=== PATIENT | male | born 1955 | race American Indian/Alaskan Native ===

== ENCOUNTER 2021-10-30 13:49 | Emergency (ER) | payer SELFPAY ==
[2021-10-30 14:16] VITALS: BP 114/68
== END 2021-10-31 08:30 | disposition left against medical advice (07) ==
LOC: ED 13:49
DX: R25.1 Tremor, unspecified (principal); Z53.21 Procedure and treatment not carried out due to patient leaving prior to being seen by health care provider
CPT/HCPCS: 82962

== ENCOUNTER 2021-10-31 10:58 | Inpatient (IN) | payer SELFPAY ==
[2021-10-31 12:22] LABS: Basophils % (Auto) 0.2 % (0.0-1.8); Eosinophils % (Auto) 0.1 % (0.0-4.3); Hemoglobin 12.8 gm/dl (11.8-15.2); Lymphocytes # (Auto) 0.8 K/mm3 (1.2-5.4); Mean Corpuscular HGB Conc 33 % (32-34); Mean Corpuscular Volume 93 fl (84-94); Monocytes % (Auto) 7.3 % (0.0-7.3); Platelet Count 491 K/mm3 (140-440); Red Blood Count 4.18 M/mm3 (3.65-5.03); Red Cell Distribution Width 13.7 % (13.2-15.2)
--- NOTE | 2021-10-31 12:25 | XRay Report ---
CHEST 2 VIEWS INDICATION / CLINICAL INFORMATION: Syncope. COMPARISON: None available. FINDINGS: SUPPORT DEVICES: None. HEART / MEDIASTINUM: No significant abnormality. LUNGS / PLEURA: There is moderate infiltrate in the left upper lobe and to a lesser extent right lowe r lung. This is somewhat nodular in nature. There are also focal pleural calcifications laterally in the right lower lung. Small right pleural effusion. ADDITIONAL FINDINGS: No significant additional findings. IMPRESSION: 1. Bilateral lung opacities concerning for pneumonia. Consider further evaluation with CT. 2. Small right pleural effusion. Signer Name: Sarthak De La Garza Jr, MD Signed: 10/31/2021 12:21 PM Workstation Name: [id number]
[2021-10-31 12:31] LABS: INR 1.01 (0.87-1.13)
[2021-10-31 12:42] LABS: Creatine Kinase MB 4.3 ng/mL (0.0-4.0)
[2021-10-31 12:44] LABS: Alanine Aminotransferase 44 units/L (7-56); Albumin 3.5 g/dL (3.9-5); Blood Urea Nitrogen 53 mg/dL (9-20); Calcium 9.8 mg/dL (8.4-10.2); Hemolysis Index 4
[2021-10-31 12:45] LABS: BUN/Creatinine Ratio 14
--- NOTE | 2021-10-31 18:17 | XRay Report ---
CHEST 1 VIEW 10/31/2021 5:56 PM INDICATION / CLINICAL INFORMATION: Shortness of breath. COMPARISON: Earlier the same day. FINDINGS: SUPPORT DEVICES: None. HEART / MEDIASTINUM: No significant abnormality. LUNGS / PLEURA: Masslike opacity remains at the left upper and right lower zones. Pleural calcificati ons are seen at the right base. ADDITIONAL FINDINGS: No significant additional findings. IMPRESSION: 1. Persistent masslike opacity bilaterally. Further evaluation with CT chest recommended. 2. Pleural-based calcifications remains right base. Signer Name: Silvano Short MD Signed: 10/31/2021 6:13 PM Workstation Name: [id number]
--- NOTE | 2021-10-31 19:10 | History and Physical Report ---
History of Present Illness Chief complaint: I get short of breath, get dizzy and then I passed out History of present illness: 66 YO male with Obesity, BPH, DM, Metabolic Syndrome,BPH, HLD, Nicotine Dependence presents to ED for evaluation. Patient reports "I get short of breath, then I got dizzy, then I passed out". Patient states that he has been "not feeling well over the past 2 days. Patient states that while ambulating today he experienced a sudden onset of dizziness, weakness and shortness of breath and subsequently passed out. Patient transported to [facility] via private vehicle for further care and evaluation of the aforementioned symptoms. The patient was seen and evaluated in the emergency department. All lab and imaging studies reviewed. Patient with chest x-ray and was found to have bilateral pn eumonia, as well as acute kidney injury. Patient admitted to medical floor and initiated on pneumonia protocol as well as coronavirus protocol. Patient denies fever, chills, chest pain, palpitation, productive cough, skin rash, recent contact, unilateral leg swelling, calf pain, prolonged immobility, prolonged travel, individual/family history of DVT/PE/bleeding/blood clotting disorders. Prior admission on 12/25/2013 reviewed. All medication listed at time of admission as reconciled. Advanced care planning conducted in ED. Past History Past Medical History: diabetes, hyperlipidemia, other (See HPI) Past Surgical History: Other (Testicle surgery) Social history: single, smoking Family history: hypertension Medications and Allergies Allergies Allergy/AdvReac Type Severity Reaction Status Date / Time No Known Allergies Allergy Verified 04/27/14 05:52 Home Medications Medication Instructions Recorded Confirmed Last Taken Type Finasteride 5 mg PO BID 12/26/13 04/27/14 04/26/14 History Tamsulosin [Flomax] 0.4 mg PO BID 12/26/13 04/27/14 04/26/14 History amLODIPine 10 mg PO QDAY #30 tablet 12/30/13 04/27/14 Unknown Rx Sulfamethoxazole/Trimethoprim 1 each PO BID #14 tablet 04/27/14 Unknown Rx [Bactrim Ds] traMADoL [Ultram 50 MG tab] 50 mg PO Q6HR PRN #14 tablet 04/27/14 Unknown Rx Review of Systems Constitutional: weakness, no weight loss, no weight gain, no fever Ears, nose, mouth and throat: no ear pain, no ear discharge, no decreased hearing, no nasal congestion, no nasal discharge Cardiovascular: shortness of breath, no chest pain, no rapid/irregular heart beat Respiratory: no cough with sputum, no excessive sputum, no shortness of breath Gastrointestinal: no abdominal pain, no vomiting, no change in bowel habits Genitourinary Male: no hematuria, no flank pain, no discharge, no urinary frequency Rectal: no pain, no incontinence, no bleeding Musculoskeletal: no neck stiffness, no shooting arm pain, no low back pain, no shooting leg pain Integumentary: no rash, no pruritis, no redness, no wounds, no jaundice Neurological: syncope, no head injury, no transient paralysis Psychiatric: no anxiety, no change in sleep habits, no sleep disturbances, no insomnia, no hypersomnia, no change in appetite, no hallucinations Endocrine: no heat intolerance, no excessive thirst, no polyuria, no excessive sweating Hematologic/Lymphatic: no easy bruising, no lymphedema Allergic/Immunologic: no urticaria, no allergic rhinitis, no wheezing, no angioedema Exam - Constitutional Vitals: Temp Pulse Resp BP Pulse Ox 99.8 F H 107 H 20 146/79 94 10/31/21 11:04 10/31/21 11:04 10/31/21 11:04 10/31/21 11:04 10/31/21 11:04 General appearance: Present: mild distress - EENT Eyes: Present: PERRL ENT: hearing intact, clear oral mucosa - Neck Neck: Present: supple, normal ROM - Respiratory Respiratory effort: normal Respiratory: bilateral: diminished, rhonchi - Cardiovascular Heart Sounds: Present: S1 & S2. Absent: rub, click - Extremities Extremities: pulses symmetrical, No edema Peripheral Pulses: within normal limits - Abdominal General gastrointestinal: Present: soft, non-tender, non-distended, normal bowel sounds Male genitourinary: Present: normal - Integumentary Integumentary: Present: clear, warm, dry - Musculoskeletal Musculoskeletal: gait normal, strength equal bilaterally - Psychiatric Psychiatric: appropriate mood/affect, intact judgment & insight - Neurologic Neurologic: CNII-XII intact, moves all extremities HEART Score - HEART Score Troponin: Troponin T < 0.010 ng/mL (0.00-0.029) 10/31/21 11:29 Results - Labs CBC & Chem 7: 10/31/21 11:29 10/31/21 11:29 Labs: Abnormal lab results 10/31/21 10/31/21 10/31/21 Range/Units 11:15 11:29 11:29 WBC 13.6 H (4.5-11.0) K/mm3 Plt Count 491 H (140-440) K/mm3 Lymph % (Auto) 6.0 L (13.4-35.0) % Lymph # (Auto) 0.8 L (1.2-5.4) K/mm3 [place] # (Auto) 1.0 H (0.0-0.8) K/mm3 Seg Neutrophils % 86.4 H (40.0-70.0) % Seg Neutrophils # 11.8 H (1.8-7.7) K/mm3 D-Dimer 1287.39 H (0-234) ng/mlDDU Sodium (137-145) mmol/L Chloride (98-107) mmol/L BUN (9-20) mg/dL Creatinine (0.8-1.3) mg/dL Glucose (75-100) mg/dL POC Glucose 149 H (70-105) mg/dL Alkaline Phosphatase (35-129) units/L Total Creatine Kinase (55-170) units/L CK-MB (CK-2) (0.0-4.0) ng/mL Total Protein (6.3-8.2) g/dL Albumin (3.9-5) g/dL 10/31/21 Range/Units 11:29 WBC (4.5-11.0) K/mm3 Plt Count (140-440) K/mm3 Lymph % (Auto) (13.4-35.0) % Lymph # (Auto) (1.2-5.4) K/mm3 [place] # (Auto) (0.0-0.8) K/mm3 Seg Neutrophils % (40.0-70.0) % Seg Neutrophils # (1.8-7.7) K/mm3 D-Dimer (0-234) ng/mlDDU Sodium 128 L (137-145) mmol/L Chloride 89.1 L (98-107) mmol/L BUN 53 H (9-20) mg/dL Creatinine 3.9 H (0.8-1.3) mg/dL Glucose 168 H (75-100) mg/dL POC Glucose (70-105) mg/dL Alkaline Phosphatase 270 H (35-129) units/L Total Creatine Kinase 216 H (55-170) units/L CK-MB (CK-2) 4.3 H (0.0-4.0) ng/mL Total Protein 9.4 H (6.3-8.2) g/dL Albumin 3.5 L (3.9-5) g/dL Assessment and Plan - Patient Problems (1) Pneumonia Status: Acute Plan to address problem: Pneumonia protocol: Chest x-ray, CBC, CMP, IV antibiotic therapy, supplemental oxygen, pulse oximetry, nebulizer therapy, blood culture. (2) Acute kidney injury (CHAZ) with acute tubular necrosis (ATN) Status: Acute Plan to address problem: IV fluid resuscitation therapy, BMP, repeat BMP in a.m., monitor urine output every shift. Urine electrolytes. (3) Suspected 2019 novel coronavirus infection Status: Acute Plan to address problem: Coronavirus protocol: IV antibiotic therapy, IV steroid therapy, vitamin C therapy, vitamin D therapy, zinc therapy, prophylactic anticoagulation. (4) Obesity (BMI 30.0-34.9) Status: Acute Plan to address problem: Balanced diet, increase physical activity discharge. (5) Hypertension Status: Acute Qualifiers: Hypertension type: primary hypertension Qualified Code(s): I10 - Essential (primary) hypertension Plan to address problem: Monitor blood pressure every shift, continue medical management. (6) Metabolic syndrome Status: Acute Plan to address problem: Weight reduction, low-cholesterol diet, increase physical activity discharge, weight reduction. (7) Diabetes Status: Acute Plan to address problem: Consistent carbohydrate diet, Accu-Chek, insulin protocol, hypoglycemia p rotocol. (8) Nicotine dependence Status: Acute Plan to address problem: Smoking cessation counseling, behavior change counseling, +15 minutes, plus supportive care. (9) DVT prophylaxis Status: Acute Plan to address problem: SCD to bilateral lower extremities while in bed, prophylactic anticoagulation. (10) Advance care planning Status: Acute Plan to address problem: Disease education done, care plan discussed, diagnoses discussed, prognosis discussed, patient is full code. Patient knowledges understanding agree with care plan, +30 minutes. (11) Preventative health care Status: Acute Plan to address problem: Patient counseled regarding weight reduction, risk factor reduction, and outpatient follow-up with primary care physician for all age and risk factor appropriate screening test. +30 minutes.
--- NOTE | 2021-10-31 19:16 | Emergency Department Report ---
ED Syncope HPI - General Chief Complaint: Syncope Stated Complaint: SYNCOPE Time Seen by Provider: 10/31/21 17:44 Source: patient, family - History of Present Illness Initial Comments: Patient is a 66-year-old male with history of chronic kidney disease brought in for evaluation after witnessed syncopal event earlier today. States he had just gotten home from [place]. He reports associated dizziness without headache. He denies chest pain however reports mild dyspnea. Denies fever or chills. He is not on dialysis. - Related Data Allergies/Adverse Reactions: Allergies No Known Allergies Allergy (Verified 04/27/14 05:52) Home Medications: Ambulatory Orders Finasteride 5 mg PO BID 12/26/13 Tamsulosin [Flomax] 0.4 mg PO BID 12/26/13 amLODIPine 10 mg PO QDAY #30 tablet 12/30/13 Sulfamethoxazole/Trimethoprim [Bactrim Ds] 1 each PO BID #14 tablet 04/27/14 traMADoL [Ultram 50 MG tab] 50 mg PO Q6HR PRN #14 tablet 04/27/14 ED Review of Systems ROS: Stated complaint: SYNCOPE Other details as noted in HPI Constitutional: denies: chills, fever Respiratory: shortness of breath. denies: cough, wheezing Cardiovascular: denies: chest pain, palpitations Gastrointestinal: denies: abdominal pain, nausea, diarrhea Genitourinary: denies: urgency, dysuria Musculoskeletal: denies: back pain, joint swelling, arthralgia Skin: denies: rash, lesions Neurological: as per HPI Psychiatric: denies: anxiety, depression ED Past Medical Hx - Past Medical History Hx Hypertension: Yes Hx Heart Attack/AMI: No Hx Congestive Heart Failure: No Hx Diabetes: Yes Hx Deep Vein Thrombosis: No Hx Pulmonary Embolism: No Hx GERD: No Hx Liver Disease: No Hx Renal Disease: No Hx Sickle Cell Disease: No Hx Arthritis: No Hx Headaches / Migraines: No Hx Seizures: No Hx Kidney Stones: No Hx Asthma: No Hx COPD: No Hx Tuberculosis: Yes Hx Dementia: No Hx HIV: No Additional medical history: enlarged prostate, high cholesterol - Surgical History Hx Coronary Stent: No Hx Open Heart Surgery: No Hx Pacemaker: No Hx Internal Defibrillator: No Hx Cholecystectomy: No Hx Appendectomy: No Hx Breast Surgery: No Additional Surgical History: Testicle removed - Social History Smoking Status: Current Every Day Smoker - Medications Home Medications: Home Medications Medication Instructions Recorded Confirmed Last Taken Type Finasteride 5 mg PO BID 12/26/13 04/27/14 04/26/14 History Tamsulosin [Flomax] 0.4 mg PO BID 12/26/13 04/27/14 04/26/14 History amLODIPine 10 mg PO QDAY #30 tablet 12/30/13 04/27/14 Unknown Rx Sulfamethoxazole/Trimethoprim 1 each PO BID #14 tablet 04/27/14 Unknown Rx [Bactrim Ds] traMADoL [Ultram 50 MG tab] 50 mg PO Q6HR PRN #14 tablet 04/27/14 Unknown Rx ED Physical Exam - General Limitations: No Limitations General appearance: alert, in no apparent distress - Head Head exam: Present: atraumatic, normocephalic - Neck Neck exam: Present: normal inspection - Respiratory Respiratory exam: Present: normal lung sounds bilaterally. Absent: respiratory distress - Cardiovascular Cardiovascular Exam: Present: normal rhythm, tachycardia, normal heart sounds - GI/Abdominal GI/Abdominal exam: Present: soft. Absent: distended, tenderness - Neurological Exam Neurological exam: Present: alert, oriented X3 - Psychiatric Psychiatric exam: Present: normal affect, normal mood - Skin Skin exam: Present: warm, dry, intact, normal color ED Course Vital Signs 10/31/21 11:04 Temperature 99.8 F H Pulse Rate 107 H Respiratory 20 Rate Blood Pressure 146/79 O2 Sat by Pulse 94 Oximetry ED Medical Decision Making - Lab Data Result diagrams: 10/31/21 11:29 10/31/21 11:29 - EKG Data -: EKG Interpreted by Me (Sinus rhythm with ventricular rate of 105. Right bundle branch block) - Medical Decision Making Labs reviewed. WBC count 13.6. D-dimer roughly 1200. Troponin within normal limits. Creatinine 3.9. Potassium within normal limits. Unable to obtain contrasted scan at this time given patient's renal function. Will admit to hospitalist and obtain VQ scan. Critical care attestation.: If time is entered above; I have spent that time in minutes in the direct care of this critically ill patient, excluding procedure time. ED Disposition Clinical Impression: Syncope and collapse, Chronic kidney disease, Elevated d-dimer Disposition: 09 ADMITTED INPATIENT Is pt being admited?: Yes Condition: Stable Instructions: Syncope (ED)
[2021-10-31] MEDS ORDERED: HYDROmorphone 0.5 MG/0.5 ML INJ IV PRN (19:17)
[2021-10-31] MEDS ORDERED: oxyCODONE /ACETAMINOPHEN 5-325MG TAB PO PRN (19:17)
[2021-10-31] MEDS ORDERED: ALBUTEROL 2.5 MG/3 ML NEBU IH PRN (19:17)
[2021-10-31] MEDS ORDERED: ONDANSETRON 4 MG/2 ML INJ IV PRN (19:17)
[2021-10-31] MEDS ORDERED: ACETAMINOPHEN 325 MG TAB PO PRN (19:17)
[2021-10-31] MEDS ORDERED: traMADol 50 MG TAB PO PRN ×2 (19:20→20:00)
--- NOTE | 2021-10-31 19:54 | Cat Scan Report ---
CT head/brain wo con INDICATION / CLINICAL INFORMATION: 66 years Male; Syncope. TECHNIQUE: Routine CT head without contrast. All CT scans at this location are performed using CT dos e reduction for ALARA by means of automated exposure control. COMPARISON: None. FINDINGS: BRAIN / INTRACRANIAL CONTENTS: The motion degrades the image quality. However, there is extensive cer ebral white matter disease most consistent with microvascular angiopathy. There is a lacunar infarct involving the head of the right caudate which appears chronic at. The ventricular system is appropria te in size and configuration. There is no clear CT evidence of acute intracranial hemorrhage or signi ficant mass effect. ORBITS: No significant abnormality of visualized orbits. SINUSES / MASTOIDS: No significant abnormality in the visualized paranasal sinuses or mastoid air tracey ls. CRANIOCERVICAL JUNCTION: No significant abnormality. ADDITIONAL FINDINGS: None. IMPRESSION: 1. There is extensive microvascular angiopathy as described without clear CT evidence of acute intrac ranial hemorrhage. Signer Name: James Barrett MD Signed: 10/31/2021 7:49 PM Workstation Name: [id number]
[2021-10-31 21:44] LABS: C-Reactive Protein 29.1 mg/dL (0.00-1.30)
[2021-10-31] MEDS ORDERED: FINASTERIDE 1 MG PO SCH (22:00)
[2021-10-31] MEDS: HEPARIN 5,000 UNIT/1 ML VIAL SUB-Q SCH (23:48)
[2021-10-31] MEDS: cefTRIAXone/NS 2 GM/100 ML 2 GM/100 ML BAG IV SCH (23:48)
[2021-10-31] MEDS: methylPREDNISolone Sod Succinate 40 MG/1 ML INJ IV SCH (23:48)
[2021-10-31] MEDS: ASCORBIC ACID 500 MG TAB PO SCH (23:49)
[2021-11-01] MEDS: methylPREDNISolone Sod Succinate 40 MG/1 ML INJ IV SCH ×3 (05:27→21:44)
[2021-11-01] MEDS: SODIUM CHLORIDE 0.9% 1000 ML 1,000 ML IV SCH (06:19)
[2021-11-01] MEDS: TAMSULOSIN 0.4 MG CAP PO SCH ×3 (09:07→21:43)
[2021-11-01] MEDS: ZINC SULFATE 220 MG CAP PO SCH ×3 (09:07→21:43)
[2021-11-01] MEDS: FINASTERIDE 5 MG TAB PO SCH ×3 (09:07→21:44)
[2021-11-01] MEDS: ASCORBIC ACID 500 MG TAB PO SCH ×2 (09:19→21:44)
[2021-11-01] MEDS: HEPARIN 5,000 UNIT/1 ML VIAL SUB-Q SCH ×2 (09:19→21:44)
[2021-11-01] MEDS: CHOLECALCIFEROL (VIT D3) 1000 UNIT (25 mcg) TAB PO SCH (09:19)
[2021-11-01] MEDS: AZITHROMYCIN 250 MG TAB PO SCH (09:19)
[2021-11-01 09:20] LABS: Hematocrit 36.4 % (35.5-45.6); Hemoglobin 12.5 gm/dl (11.8-15.2); Mean Corpuscular HGB Conc 34 % (32-34); Mean Corpuscular Volume 92 fl (84-94); Platelet Count 490 K/mm3 (140-440); Red Blood Count 3.98 M/mm3 (3.65-5.03); Red Cell Distribution Width 13.9 % (13.2-15.2)
[2021-11-01 09:41] LABS: Calcium 10.2 mg/dL (8.4-10.2)
[2021-11-01] MEDS ORDERED: amLODIPine 10 MG TAB PO SCH (10:00)
--- NOTE | 2021-11-01 10:04 | Electrocardiograph Report ---
[facility] Test Date: 2021-10-31 Test Time: 11:23:02 Pat Name: KIRBY GILMORE Department: Room: A353 Gender: M Primary Care Coordinator: SKY : 1955 Requested By: ED DOC Order Number: [id number] Reading MD: Artie Dominique Measurements Intervals [place] Rate: 105 P: 77 SC: 162 QRS: -67 QRSD: 125 T: 56 QT: 361 QTc: 476 Interpretive Statements Sinus tachycardia RBBB and LAFB Borderline ST elevation, lateral leads No previous ECG available for comparison Electronically Signed On 11-01-2021 10:03:56 EDT by Artie Dominique
[2021-11-01] MEDS ORDERED: DEXTROSE 50% IN WATER (25GM) 50 ML SYRINGE IV ONE ×2 (10:20→11:00)
[2021-11-01] MEDS ORDERED: SODIUM POLYSTYRENE 15 GM/60 ML ORAL LIQD PO NR (10:45)
[2021-11-01] MEDS ORDERED: INSULIN REGULAR, HUMAN 100 UNITS/1 ML IV ONE (11:00)
[2021-11-01 13:55] LABS: Basophils % (Manual) 0 % (0.0-1.8); Eosinophils % (Manual) 0 % (0.0-4.3); Monocytes % (Manual) 0 % (0.0-7.3); RBC Morphology Normal; Total Cells Counted 100
[2021-11-01 13:56] LABS: Platelet Estimate Consistent w Auto
--- NOTE | 2021-11-01 18:02 | Progress Note ---
Assessment and Plan Assessment and plan: #Community-acquired pneumonia #Acute hypoxic respiratory failure Pneumonia protocol: Chest x-ray, CBC, CMP, IV antibiotic therapy, supplemental oxygen, pulse oximetry, nebulizer therapy, blood culture. Unremarkable coronavirus PCR. Discontinuing coronavirus infection protocol. - etiology: Infectious/community-acquired pneumonia - baseline oxygen requirements: Room air - supplemental oxygen: 1 L nasal cannula - Continue protocol: continue pulse oximetry, wean oxygen as tolerated, ordered incentive spirometry and educated patient on how to use it and its importance. - continue to monitor #Acute kidney injury (CHAZ) with acute tubular necrosis (ATN) IV fluid resuscitation therapy, BMP, repeat BMP in a.m., monitor urine output every shift. Urine electrolytes. #Suspected 2019 novel coronavirus infectionruled out Coronavirus protocol: IV antibiotic therapy, IV steroid therapy, vitamin C therapy, vitamin D therapy, zinc therapy, prophylactic anticoagulation. #Obesity #Weight loss counseling #Exercise counseling - BMI 31.9 - Counseled patient on the importance of weight loss, incorporating exercise, and dietary changes (lean meats, fresh fruits and vegetables, and water intake). Patient expresses understanding. - Time: +15 min #Hypertension Monitor blood pressure every shift, continue medical management. #Metabolic syndrome Weight reduction, low-cholesterol diet, increase physical activity discharge, weight reduction. #Diabetes Consistent carbohydrate diet, Accu-Chek, insulin protocol, hypoglycemia protocol. #Mild protein caloric malnutrition Albumin 3.5 Starts dietary supplementation #Tobacco dependence #Tobacco/Smoking cessation counseling - Counseled patient about the importance of smoking cessation and the possible sequelae as a result of continued tobacco consumption. The patient expresses understanding. -Time: +15 mins #Advanced care planning -Disease education conducted, care plan discussed, diagnoses discussed, prognosis discussed, and patient acknowledges understanding with care plan -Time: +30 min Disposition Plan: Continue medical management Total Time Spent with Patient (Minutes): 45 minutes History Interval history: No acute events overnight. Hospitalist Physical - Constitutional Vitals: Temp Pulse Resp BP Pulse Ox 97.6 F 90 18 142/90 92 11/01/21 11:34 11/01/21 11:34 11/01/21 11:34 11/01/21 11:34 11/01/21 11:34 General appearance: Present: no acute distress, well-nourished, obese - EENT Eyes: Present: PERRL, EOM intact ENT: hearing intact, clear oral mucosa, dentition normal - Neck Neck: Present: supple, normal ROM - Respiratory Respiratory effort: normal Respiratory: bilateral: diminished (On 1 L nasal cannula) - Cardiovascular Rhythm: regular Heart Sounds: Present: S1 & S2 - Extremities Extremities: no ischemia, pulses intact, pulses symmetrical, No edema, normal temperature, normal color Peripheral Pulses: within normal limits - Abdominal General gastrointestinal: soft, non-tender, non-distended, normal bowel sounds - Integumentary Integumentary: Present: clear, warm, dry - Psychiatric Psychiatric: appropriate mood/affect, intact judgment & insight, memory intact, cooperative - Neurologic Neurologic: CNII-XII intact, moves all extremities - Allied Health Allied health notes reviewed: nursing HEART Score - HEART Score Troponin: Troponin T < 0.010 ng/mL (0.00-0.029) 10/31/21 11:29 Results - Labs CBC & Chem 7: 11/01/21 08:37 11/01/21 08:37 Labs: Laboratory Last Values WBC 14.1 K/mm3 (4.5-11.0) H 11/01/21 08:37 RBC 3.98 M/mm3 (3.65-5.03) 11/01/21 08:37 Hgb 12.5 gm/dl (11.8-15.2) 11/01/21 08:37 Hct 36.4 % (35.5-45.6) 11/01/21 08:37 MCV 92 fl (84-94) 11/01/21 08:37 MCH 32 pg (28-32) 11/01/21 08:37 MCHC 34 % (32-34) 11/01/21 08:37 RDW 13.9 % (13.2-15.2) 11/01/21 08:37 Plt Count 490 K/mm3 (140-440) H 11/01/21 08:37 Lymph % (Auto) 6.0 % (13.4-35.0) L 10/31/21 11:29 Randolph % (Auto) 7.3 % (0.0-7.3) 10/31/21 11:29 Eos % (Auto) 0.1 % (0.0-4.3) 10/31/21 11:29 Baso % (Auto) 0.2 % (0.0-1.8) 10/31/21 11:29 Lymph # (Auto) 0.8 K/mm3 (1.2-5.4) L 10/31/21 11:29 Randolph # (Auto) 1.0 K/mm3 (0.0-0.8) H 10/31/21 11:29 Eos # (Auto) 0.0 K/mm3 (0.0-0.4) 10/31/21 11:29 Baso # (Auto) 0.0 K/mm3 (0.0-0.1) 10/31/21 11:29 Add Manual Diff Complete 11/01/21 08:37 Total Counted 100 11/01/21 08:37 Seg Neutrophils % Liquefaction Plant Operator 11/01/21 08:37 Seg Neuts % (Manual) 99.0 % (40.0-70.0) H 11/01/21 08:37 Band Neutrophils % 0 % 11/01/21 08:37 Lymphocytes % (Manual) 1.0 % (13.4-35.0) L 11/01/21 08:37 Reactive Lymphs % (Man) 0 % 11/01/21 08:37 Monocytes % (Manual) 0 % (0.0-7.3) 11/01/21 08:37 Eosinophils % (Manual) 0 % (0.0-4.3) 11/01/21 08:37 Basophils % (Manual) 0 % (0.0-1.8) 11/01/21 08:37 Metamyelocytes % 0 % 11/01/21 08:37 Myelocytes % 0 % 11/01/21 08:37 Promyelocytes % 0 % 11/01/21 08:37 Blast Cells % 0 % 11/01/21 08:37 Nucleated RBC % Not Reportable 11/01/21 08:37 Seg Neutrophils # 11.8 K/mm3 (1.8-7.7) H 10/31/21 11:29 Seg Neutrophils # Man 14.0 K/mm3 (1.8-7.7) H 11/01/21 08:37 Band Neutrophils # 0.0 K/mm3 11/01/21 08:37 Lymphocytes # (Manual) 0.1 K/mm3 (1.2-5.4) L 11/01/21 08:37 Abs React Lymphs (Man) 0.0 K/mm3 11/01/21 08:37 Monocytes # (Manual) 0.0 K/mm3 (0.0-0.8) 11/01/21 08:37 Eosinophils # (Manual) 0.0 K/mm3 (0.0-0.4) 11/01/21 08:37 Basophils # (Manual) 0.0 K/mm3 (0.0-0.1) 11/01/21 08:37 Metamyelocytes # 0.0 K/mm3 11/01/21 08:37 Myelocytes # 0.0 K/mm3 11/01/21 08:37 Promyelocytes # 0.0 K/mm3 11/01/21 08:37 Blast Cells # 0.0 K/mm3 11/01/21 08:37 WBC Morphology Not Reportable 11/01/21 08:37 Hypersegmented Neuts Not Reportable 11/01/21 08:37 Hyposegmented Neuts Not Reportable 11/01/21 08:37 Hypogranular Neuts Not Reportable 11/01/21 08:37 Smudge Cells Not Reportable 11/01/21 08:37 Toxic Granulation Not Reportable 11/01/21 08:37 Toxic Vacuolation Not Reportable 11/01/21 08:37 Dohle Bodies Not Reportable 11/01/21 08:37 Pelger-Huet Anomaly Not Reportable 11/01/21 08:37 Khushbu Rods Not Reportable 11/01/21 08:37 Platelet Estimate Consistent w auto 11/01/21 08:37 Clumped Platelets Not Reportable 11/01/21 08:37 Plt Clumps, EDTA Not Reportable 11/01/21 08:37 Large Platelets Not Reportable 11/01/21 08:37 Giant Platelets Not Reportable 11/01/21 08:37 Platelet Satelliting Not Reportable 11/01/21 08:37 Plt Morphology Comment Not Reportable 11/01/21 08:37 RBC Morphology Normal 11/01/21 08:37 Dimorphic RBCs Not Reportable 11/01/21 08:37 Polychromasia Not Reportable 11/01/21 08:37 Hypochromasia Not Reportable 11/01/21 08:37 Poikilocytosis Not Reportable 11/01/21 08:37 Anisocytosis Not Reportable 11/01/21 08:37 Microcytosis Not Reportable 11/01/21 08:37 Macrocytosis Not Reportable 11/01/21 08:37 Spherocytes Not Reportable 11/01/21 08:37 Pappenheimer Bodies Not Reportable 11/01/21 08:37 Sickle Cells Not Reportable 11/01/21 08:37 Target Cells Not Reportable 11/01/21 08:37 Tear Drop Cells Not Reportable 11/01/21 08:37 Ovalocytes Not Reportable 11/01/21 08:37 Helmet Cells Not Reportable 11/01/21 08:37 West-Echo Bodies Not Reportable 11/01/21 08:37 Spencer Rings Not Reportable 11/01/21 08:37 Hugo Cells Not Reportable 11/01/21 08:37 Bite Cells Not Reportable 11/01/21 08:37 Crenated Cell Not Reportable 11/01/21 08:37 Elliptocytes Not Reportable 11/01/21 08:37 Acanthocytes (Spur) Not Reportable 11/01/21 08:37 Rouleaux Not Reportable 11/01/21 08:37 Hemoglobin C Crystals Not Reportable 11/01/21 08:37 Schistocytes Not Reportable 11/01/21 08:37 Malaria parasites Not Reportable 11/01/21 08:37 Law Bodies Not Reportable 11/01/21 08:37 Hem Pathologist Commnt No 11/01/21 08:37 PT 14.4 Sec. (12.2-14.9) 10/31/21 11:29 INR 1.01 (0.87-1.13) 10/31/21 11:29 D-Dimer 1264.90 ng/mlDDU (0-234) H 10/31/21 20:05 Sodium 127 mmol/L (137-145) L 11/01/21 08:37 Potassium 5.5 mmol/L (3.6-5.0) H 11/01/21 08:37 Chloride 87.3 mmol/L (98-107) L 11/01/21 08:37 Carbon Dioxide 26 mmol/L (22-30) 11/01/21 08:37 Anion Gap 19 mmol/L 11/01/21 08:37 BUN 60 mg/dL (9-20) H 11/01/21 08:37 Creatinine 3.9 mg/dL (0.8-1.3) H 11/01/21 08:37 Estimated GFR 19 ml/min 11/01/21 08:37 BUN/Creatinine Ratio 15 % 11/01/21 08:37 Glucose 163 mg/dL (75-100) H 11/01/21 08:37 POC Glucose 149 mg/dL (70-105) H 10/31/21 11:15 Calcium 10.2 mg/dL (8.4-10.2) 11/01/21 08:37 Total Bilirubin 0.50 mg/dL (0.1-1.2) 10/31/21 11:29 AST 35 units/L (5-40) 10/31/21 11:29 ALT 44 units/L (7-56) 10/31/21 11:29 Alkaline Phosphatase 270 units/L (35-129) H 10/31/21 11:29 Lactate Dehydrogenase 165 units/L (91-180) 10/31/21 20:05 Total Creatine Kinase 216 units/L (55-170) H 10/31/21 11:29 CK-MB (CK-2) 4.3 ng/mL (0.0-4.0) H 10/31/21 11:29 CK-MB (CK-2) Rel Index 1.9 (0-4) 10/31/21 11:29 Troponin T < 0.010 ng/mL (0.00-0.029) 10/31/21 11:29 C-Reactive Protein 29.10 mg/dL (0.00-1.30) H 10/31/21 20:05 Total Protein 9.4 g/dL (6.3-8.2) H 10/31/21 11:29 Albumin 3.5 g/dL (3.9-5) L 10/31/21 11:29 Albumin/Globulin Ratio 0.6 % 10/31/21 11:29 Procalcitonin 1.88 ng/mL (<0.15) 10/31/21 20:05 Coronavirus (PCR) Negative (Negative) 11/01/21 09:30 Leblanc/IV: Voiding Method Toilet Active Medications - Current Medications Current Medications: Generic Name Dose Route Start Last Admin Trade Name Freq PRN Reason Stop Dose Admin Acetaminophen 650 mg 10/31/21 19:17 Acetaminophen 325 Mg Tab PO Q4H PRN Pain MILD(1-3)/Fever >100.5/GRISSOM Albuterol 2.5 mg 10/31/21 19:17 Albuterol 2.5 Mg/3 Ml Nebu IH Q4HRT PRN Shortness Of Breath Amlodipine Besylate 10 mg 11/01/21 10:00 11/01/21 09:18 Amlodipine 10 Mg Tab PO 10 mg QDAY JUAN Administration Ascorbic Acid 500 mg 10/31/21 22:00 11/01/21 09:19 Ascorbic Acid 500 Mg Tab PO 500 mg BID JUAN Administration Azithromycin 500 mg 11/01/21 10:00 11/01/21 09:19 Azithromycin 250 Mg Tab PO 11/05/21 10:01 500 mg QDAY JUAN Administration Protocol Cholecalciferol 1,000 unit 11/01/21 10:00 11/01/21 09:19 Cholecalciferol (Vit D3) 1000 Unit (25 Mcg) Tab PO 1,000 unit QDAY JAUN Administration Finasteride 5 mg 10/31/21 22:00 11/01/21 09:19 Finasteride 5 Mg Tab PO 5 mg BID JUAN Administration Heparin Sodium (Porcine) 5,000 unit 10/31/21 22:00 11/01/21 09:19 Heparin 5,000 Unit/1 Ml Vial SUB-Q 5,000 unit Q12HR JUAN Administration Hydromorphone HCl 0.5 mg 10/31/21 19:17 Hydromorphone 0.5 Mg/0.5 Ml Inj IV Q8H PRN Pain , Severe (7-10) Sodium Chloride 1,000 mls @ 42 mls/hr 10/31/21 19:30 11/01/21 06:19 Nacl 0.9% 1000 Ml IV 42 mls/hr DIRECT JUAN Administration Ceftriaxone Sodium 2 gm in 100 mls @ 200 mls/hr 10/31/21 20:00 10/31/21 23:48 Rocephin/Ns 2 Gm/100 Ml IV 200 mls/hr Q24H JUAN Administration Protocol Methylprednisolone Sodium Succinate 40 mg 10/31/21 22:00 11/01/21 14:15 Methylprednisolone Sod Succinate 40 Mg/1 Ml Inj IV 40 mg Q8HR JUAN Administration Ondansetron HCl 4 mg 10/31/21 19:17 Ondansetron 4 Mg/2 Ml Inj IV Q8H PRN Nausea And Vomiting Oxycodone/Acetaminophen 1 tab 10/31/21 19:17 Oxycodone /Acetaminophen 5-325mg Tab PO Q6H PRN Pain, Moderate (4-6) Sodium Chloride 10 ml 10/31/21 22:00 11/01/21 09:19 Sodium Chloride 0.9% 10 Ml Flush Syringe IV 10 ml BID JUAN Administration Sodium Chloride 10 ml 10/31/21 19:17 Sodium Chloride 0.9% 10 Ml Flush Syringe IV PRN PRN LINE FLUSH Tamsulosin HCl 0.4 mg 10/31/21 22:00 11/01/21 09:19 Tamsulosin 0.4 Mg Cap PO 0.4 mg BID JUAN Administration Tramadol HCl 50 mg 10/31/21 20:00 Tramadol 50 Mg Tab PO Q6H PRN Pain, Moderate (4-6) Zinc Sulfate 220 mg 10/31/21 22:00 11/01/21 09:19 Zinc Sulfate 220 Mg Cap PO 220 mg BID JUAN Administration Nutrition/Malnutrition Assess - Dietary Evaluation Nutrition/Malnutrition Findings: Nutrition Notes Start: 11/01/21 17:19 Freq: Status: Active Protocol: Document 11/01/21 17:19 NINFA (Rec: 11/01/21 17:38 NINFA [id number]) Nutrition Notes Need for Assessment generated from: MD Order Initial or Follow up Assessment Current Diagnosis Acute Kidney Injury,Diabetes, Hypertension,Hyperlipidemia Other Pertinent Diagnosis Pneumonia, COVID-19 pui, Hyponatremia, Hyperkalemia, BPH. Current Diet Cardiac Diet (since D 10/31). Labs/Tests 11/01: Na 127, K 5.5, Cl 87.3, BUN 60, Crea 3.9, Glu 163. Pertinent Medications 11/01: Vit C, Vit D3, ZnSO4, others nutritionally unremarkable. 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 Weight Status Obese Subjective/Other Information RD consult for Dietary Supplementation Assessment. Pt's PO intake of meals has been Good (100%), according to ADL notes. I will not prescribe dietary supplementation since it appears not to be necessary to compensate for poor PO intake of meals at this time. Pt is on Room Air, O2 saturation @ 97%, according to Physical Assessment Histrory notes. Pt has missing teeth, according to Physical Assessment Histrory notes. Percent of energy/protein needs met: Prescribed Cardiac Diet provides for energy/protein needs (2,230 Kcal/85 g) during LOS. Burn Absent Trauma Absent GI Symptoms None Food Allergy No Skin Integrity/Comment Assessment WNL. Current % PO Good (75-100%) Minimum of two criteria No Fluid Accumulation N/A Reduced Grip Wrapper Strength N/A (non-severe) Protein-Calorie Malnutrition N\A #1 Nutrition Diagnosis No nutrition diagnosis at this time Is patient on ventilator? No Is Patient Ambulatory and/or Out of Bed Yes REE-([place]-. [facility]-ambulatory/OOB) [ [id number] [id number]] Kcal/Kg value to use for calculation 20 Approximate Energy Requirements Using 1958 kcal/Kg Calculation Used for Recommendations Kcal/kg Additional Notes Protein: 0.8-1.2 g/Kg AdjBW; 69-103 g/day. Fluids: 1 ml/Kcal, or as per MD. Nutrition Intervention Change Diet Order: Continue Cardiac Diet. Follow-Up By: 11/08/21 Additional Comments Continue monitoring food tolerance, %PO intake of meals , and BM.
[2021-11-01] MEDS: cefTRIAXone/NS 2 GM/100 ML 2 GM/100 ML BAG IV SCH (20:28)
[2021-11-02] MEDS: SODIUM CHLORIDE 0.9% 1000 ML 1,000 ML IV SCH (05:41)
[2021-11-02] MEDS: methylPREDNISolone Sod Succinate 40 MG/1 ML INJ IV SCH (05:41)
[2021-11-02 05:53] LABS: Hematocrit 35.4 % (35.5-45.6); Hemoglobin 11.7 gm/dl (11.8-15.2); Mean Corpuscular HGB Conc 33 % (32-34); Mean Corpuscular Volume 93 fl (84-94); Platelet Count 482 K/mm3 (140-440); Red Blood Count 3.82 M/mm3 (3.65-5.03); Red Cell Distribution Width 13.9 % (13.2-15.2)
[2021-11-02 06:13] LABS: Calcium 9.6 mg/dL (8.4-10.2)
[2021-11-02] MEDS ORDERED: NIFEdipine XL 90 MG TAB PO SCH ×2 (07:48→08:00)
[2021-11-02] MEDS: NIFEdipine XL 60 MG TAB PO SCH (08:47)
[2021-11-02] MEDS: carvediloL 12.5 MG TAB PO SCH ×2 (08:47→21:44)
[2021-11-02] MEDS: TAMSULOSIN 0.4 MG CAP PO SCH ×2 (09:09→21:44)
[2021-11-02] MEDS: FINASTERIDE 5 MG TAB PO SCH ×2 (09:09→21:45)
[2021-11-02] MEDS: ZINC SULFATE 220 MG CAP PO SCH ×2 (09:10→21:45)
[2021-11-02] MEDS: HEPARIN 5,000 UNIT/1 ML VIAL SUB-Q SCH ×2 (09:10→21:45)
[2021-11-02] MEDS: AZITHROMYCIN 250 MG TAB PO SCH (09:10)
[2021-11-02] MEDS: CHOLECALCIFEROL (VIT D3) 1000 UNIT (25 mcg) TAB PO SCH (09:10)
--- NOTE | 2021-11-02 09:15 | Progress Note ---
Assessment and Plan - Patient Problems (1) Chronic kidney disease Current Visit: Yes Status: Acute Plan to address problem: (1)Monitor kidney function Continue V fluid resuscitation therapy Avoid nephrotoxic drugs renal dose all drugs (2) Elevated d-dimer Current Visit: Yes Status: Acute (3) Syncope and collapse Current Visit: Yes Status: Acute (4) Acute kidney injury (CHAZ) with acute tubular necrosis (ATN) Current Visit: No Status: Acute (5) Bilateral hydronephrosis Current Visit: No Status: Acute (6) DVT prophylaxis Current Visit: No Status: Acute (7) Diabetes Current Visit: No Status: Acute (8) Hypertension Current Visit: No Status: Acute Qualifiers: Hypertension type: primary hypertension Qualified Code(s): I10 - Essential (primary) hypertension (9) Metabolic syndrome Current Visit: No Status: Acute (10) Nicotine dependence Current Visit: No Status: Acute Hospitalist Physical - Constitutional Vitals: Temp Pulse Resp BP Pulse Ox 97.4 F L 98 H 20 191/104 91 11/02/21 04:21 11/02/21 04:21 11/02/21 04:21 11/02/21 04:21 11/02/21 04:21 General appearance: Present: no acute distress, well-nourished, obese HEART Score - HEART Score Troponin: Troponin T < 0.010 ng/mL (0.00-0.029) 10/31/21 11:29 Results - Labs CBC & Chem 7: 11/02/21 05:31 11/02/21 05:31 Labs: Laboratory Last Values WBC 15.6 K/mm3 (4.5-11.0) H 11/02/21 05:31 RBC 3.82 M/mm3 (3.65-5.03) 11/02/21 05:31 Hgb 11.7 gm/dl (11.8-15.2) L 11/02/21 05:31 Hct 35.4 % (35.5-45.6) L 11/02/21 05:31 MCV 93 fl (84-94) 11/02/21 05:31 MCH 31 pg (28-32) 11/02/21 05:31 MCHC 33 % (32-34) 11/02/21 05:31 RDW 13.9 % (13.2-15.2) 11/02/21 05:31 Plt Count 482 K/mm3 (140-440) H 11/02/21 05:31 Lymph % (Auto) 6.0 % (13.4-35.0) L 10/31/21 11:29 [place] % (Auto) 7.3 % (0.0-7.3) 10/31/21 11:29 Eos % (Auto) 0.1 % (0.0-4.3) 10/31/21 11: Baso % (Auto) 0.2 % (0.0-1.8) 10/31/21 11:29 Lymph # (Auto) 0.8 K/mm3 (1.2-5.4) L 10/31/21 11:29 [place] # (Auto) 1.0 K/mm3 (0.0-0.8) H 10/31/21 11:29 Eos # (Auto) 0.0 K/mm3 (0.0-0.4) 10/31/21 11: Baso # (Auto) 0.0 K/mm3 (0.0-0.1) 10/31/21 11:29 Add Manual Diff Complete 11/01/21 08:37 Total Counted 100 11/01/21 08:37 Seg Neutrophils % [place] 11/02/21 05:31 Seg Neuts % (Manual) 99.0 % (40.0-70.0) H 11/01/21 08:37 Band Neutrophils % 0 % 11/01/21 08:37 Lymphocytes % (Manual) 1.0 % (13.4-35.0) L 11/01/21 08:37 Reactive Lymphs % (Man) 0 % 11/01/21 08:37 Monocytes % (Manual) 0 % (0.0-7.3) 11/01/21 08:37 Eosinophils % (Manual) 0 % (0.0-4.3) 11/01/21 08:37 Basophils % (Manual) 0 % (0.0-1.8) 11/01/21 08:37 Metamyelocytes % 0 % 11/01/21 08:37 Myelocytes % 0 % 11/01/21 08:37 Promyelocytes % 0 % 11/01/21 08:37 Blast Cells % 0 % 11/01/21 08:37 Nucleated RBC % Not Reportable 11/01/21 08:37 Seg Neutrophils # 11.8 K/mm3 (1.8-7.7) H 10/31/21 11:29 Seg Neutrophils # Man 14.0 K/mm3 (1.8-7.7) H 11/01/21 08:37 Band Neutrophils # 0.0 K/mm3 11/01/21 08:37 Lymphocytes # (Manual) 0.1 K/mm3 (1.2-5.4) L 11/01/21 08:37 Abs React Lymphs (Man) 0.0 K/mm3 11/01/21 08:37 Monocytes # (Manual) 0.0 K/mm3 (0.0-0.8) 11/01/21 08:37 Eosinophils # (Manual) 0.0 K/mm3 (0.0-0.4) 11/01/21 08:37 Basophils # (Manual) 0.0 K/mm3 (0.0-0.1) 11/01/21 08:37 Metamyelocytes # 0.0 K/mm3 11/01/21 08:37 Myelocytes # 0.0 K/mm3 11/01/21 08:37 Promyelocytes # 0.0 K/mm3 11/01/21 08:37 Blast Cells # 0.0 K/mm3 11/01/21 08:37 WBC Morphology Not Reportable 11/01/21 08:37 Hypersegmented Neuts Not Reportable 11/01/21 08:37 Hyposegmented Neuts Not Reportable 11/01/21 08:37 Hypogranular Neuts Not Reportable 11/01/21 08:37 Smudge Cells Not Reportable 11/01/21 08:37 Toxic Granulation Not Reportable 11/01/21 08:37 Toxic Vacuolation Not Reportable 11/01/21 08:37 Dohle Bodies Not Reportable 11/01/21 08:37 Pelger-Huet Anomaly Not Reportable 11/01/21 08:37 [place] Rods Not Reportable 11/01/21 08:37 Platelet Estimate Consistent w auto 11/01/21 08:37 Clumped Platelets Not Reportable 11/01/21 08:37 Plt Clumps, EDTA Not Reportable 11/01/21 08:37 Large Platelets Not Reportable 11/01/21 08:37 Giant Platelets Not Reportable 11/01/21 08:37 Platelet Satelliting Not Reportable 11/01/21 08:37 Plt Morphology Comment Not Reportable 11/01/21 08:37 RBC Morphology Normal 11/01/21 08:37 Dimorphic RBCs Not Reportable 11/01/21 08:37 Polychromasia Not Reportable 11/01/21 08:37 Hypochromasia Not Reportable 11/01/21 08:37 Poikilocytosis Not Reportable 11/01/21 08:37 Anisocytosis Not Reportable 11/01/21 08:37 Microcytosis Not Reportable 11/01/21 08:37 Macrocytosis Not Reportable 11/01/21 08:37 Spherocytes Not Reportable 11/01/21 08:37 Pappenheimer Bodies Not Reportable 11/01/21 08:37 Sickle Cells Not Reportable 11/01/21 08:37 Target Cells Not Reportable 11/01/21 08:37 Tear Drop Cells Not Reportable 11/01/21 08:37 Ovalocytes Not Reportable 11/01/21 08:37 Helmet Cells Not Reportable 11/01/21 08:37 [place] Bodies Not Reportable 11/01/21 08:37 [place] Rings Not Reportable 11/01/21 08:37 [place] Cells Not Reportable 11/01/21 08:37 Bite Cells Not Reportable 11/01/21 08:37 Crenated Cell Not Reportable 11/01/21 08:37 Elliptocytes Not Reportable 11/01/21 08:37 Acanthocytes (Spur) Not Reportable 11/01/21 08:37 Rouleaux Not Reportable 11/01/21 08:37 Hemoglobin C Crystals Not Reportable 11/01/21 08:37 Schistocytes Not Reportable 11/01/21 08:37 Malaria parasites Not Reportable 11/01/21 08:37 Law Bodies Not Reportable 11/01/21 08:37 Hem Pathologist Commnt No 11/01/21 08:37 PT 14.4 Sec. (12.2-14.9) 10/31/21 11:29 INR 1.01 (0.87-1.13) 10/31/21 11:29 D-Dimer 1264.90 ng/mlDDU (0-234) H 10/31/21 20:05 Sodium 127 mmol/L (137-145) L 11/02/21 05:31 Potassium 5.1 mmol/L (3.6-5.0) H 11/02/21 05:31 Chloride 89.5 mmol/L (98-107) L 11/02/21 05:31 Carbon Dioxide 23 mmol/L (22-30) 11/02/21 05:31 Anion Gap 20 mmol/L 11/02/21 05:31 BUN 65 mg/dL (9-20) H 11/02/21 05:31 Creatinine 3.4 mg/dL (0.8-1.3) H 11/02/21 05:31 Estimated GFR 22 ml/min 11/02/21 05:31 BUN/Creatinine Ratio 19 % 11/02/21 05:31 Glucose 408 mg/dL (75-100) H 11/02/21 05:31 POC Glucose 149 mg/dL (70-105) H 10/31/21 11:15 Calcium 9.6 mg/dL (8.4-10.2) 11/02/21 05:31 Total Bilirubin 0.50 mg/dL (0.1-1.2) 10/31/21 11:29 AST 35 units/L (5-40) 10/31/21 11:29 ALT 44 units/L (7-56) 10/31/21 11:29 Alkaline Phosphatase 270 units/L (35-129) H 10/31/21 11:29 Lactate Dehydrogenase 165 units/L (91-180) 10/31/21 20:05 Total Creatine Kinase 216 units/L (55-170) H 10/31/21 11:29 CK-MB (CK-2) 4.3 ng/mL (0.0-4.0) H 10/31/21 11:29 CK-MB (CK-2) Rel Index 1.9 (0-4) 10/31/21 11:29 Troponin T < 0.010 ng/mL (0.00-0.029) 10/31/21 11:29 C-Reactive Protein 29.10 mg/dL (0.00-1.30) H 10/31/21 20:05 Total Protein 9.4 g/dL (6.3-8.2) H 10/31/21 11:29 Albumin 3.5 g/dL (3.9-5) L 10/31/21 11:29 Albumin/Globulin Ratio 0.6 % 10/31/21 11:29 Procalcitonin 1.88 ng/mL (<0.15) 10/31/21 20:05 Coronavirus (PCR) Negative (Negative) 11/01/21 09:30 [place]/IV: Voiding Method Toilet Active Medications - Current Medications Current Medications: Generic Name Dose Route Start Last Admin Trade Name Freq PRN Reason Stop Dose Admin Acetaminophen 650 mg 10/31/21 19:17 Acetaminophen 325 Mg Tab PO Q4H PRN Pain MILD(1-3)/Fever >100.5/GRISSOM Albuterol 2.5 mg 10/31/21 19:17 Albuterol 2.5 Mg/3 Ml Nebu IH Q4HRT PRN Shortness Of Breath Azithromycin 500 mg 11/01/21 10:00 11/01/21 09:19 Azithromycin 250 Mg Tab PO 11/05/21 10:01 500 mg QDAY JUAN Administration Protocol Carvedilol 12.5 mg 11/02/21 08:00 11/02/21 08:47 Carvedilol 12.5 Mg Tab PO 12.5 mg BID JUAN Administration Cholecalciferol 1,000 unit 11/01/21 10:00 11/01/21 09:19 Cholecalciferol (Vit D3) 1000 Unit (25 Mcg) Tab PO 1,000 unit QDAY JUAN Administration Finasteride 5 mg 10/31/21 22:00 11/01/21 21:44 Finasteride 5 Mg Tab PO 5 mg BID JUAN Administration Heparin Sodium (Porcine) 5,000 unit 10/31/21 22:00 11/01/21 21:44 Heparin 5,000 Unit/1 Ml Vial SUB-Q 5,000 unit Q12HR JUAN Administration Hydromorphone HCl 0.5 mg 10/31/21 19:17 Hydromorphone 0.5 Mg/0.5 Ml Inj IV Q8H PRN Pain , Severe (7-10) Sodium Chloride 1,000 mls @ 42 mls/hr 10/31/21 19:30 11/02/21 05:41 Nacl 0.9% 1000 Ml IV 42 mls/hr DIRECT JUAN Administration Ceftriaxone Sodium 2 gm in 100 mls @ 200 mls/hr 10/31/21 20:00 11/01/21 20:28 Rocephin/Ns 2 Gm/100 Ml IV 200 mls/hr Q24H JUAN Administration Protocol Nifedipine 60 mg 11/02/21 08:00 11/02/21 08:47 Nifedipine Xl 60 Mg Tab PO 60 mg QDAY JUAN Administration Ondansetron HCl 4 mg 10/31/21 19:17 Ondansetron 4 Mg/2 Ml Inj IV Q8H PRN Nausea And Vomiting Oxycodone/Acetaminophen 1 tab 10/31/21 19:17 Oxycodone /Acetaminophen 5-325mg Tab PO Q6H PRN Pain, Moderate (4-6) Sodium Chloride 10 ml 10/31/21 22:00 11/01/21 21:45 Sodium Chloride 0.9% 10 Ml Flush Syringe IV 10 ml BID JUAN Administration Sodium Chloride 10 ml 10/31/21 19:17 Sodium Chloride 0.9% 10 Ml Flush Syringe IV PRN PRN LINE FLUSH Tamsulosin HCl 0.4 mg 10/31/21 22:00 11/01/21 21:43 Tamsulosin 0.4 Mg Cap PO 0.4 mg BID JUAN Administration Tramadol HCl 50 mg 10/31/21 20:00 Tramadol 50 Mg Tab PO Q6H PRN Pain, Moderate (4-6) Zinc Sulfate 220 mg 10/31/21 22:00 11/01/21 21:43 Zinc Sulfate 220 Mg Cap PO 220 mg BID JUAN Administration Nutrition/Malnutrition Assess - Dietary Evaluation Nutrition/Malnutrition Findings: Nutrition Notes Start: 11/01/21 17:19 Freq: Status: Active Protocol: Document 11/01/21 17:19 NINFA (Rec: 11/01/21 17:38 NIFNA [id number]) Nutrition Notes Need for Assessment generated from: MD Order Initial or Follow up Assessment Current Diagnosis Acute Kidney Injury,Diabetes, Hypertension,Hyperlipidemia Other Pertinent Diagnosis Pneumonia, COVID-19 pui, Hyponatremia, Hyperkalemia, BPH. Current Diet Cardiac Diet (since D 10/31). Labs/Tests 11/01: Na 127, K 5.5, Cl 87.3, BUN 60, Crea 3.9, Glu 163. Pertinent Medications 11/01: Vit C, Vit D3, ZnSO4, others nutritionally unremarkable. 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 Weight Status Obese Subjective/Other Information RD consult for Dietary Supplementation Assessment. Pt's PO intake of meals has been Good (100%), according to ADL notes. I will not prescribe dietary supplementation since it appears not to be necessary to compensate for poor PO intake of meals at this time. Pt is on Room Air, O2 saturation @ 97%, according to Physical Assessment Histrory notes. Pt has missing teeth, according to Physical Assessment Histrory notes. Percent of energy/protein needs met: Prescribed Cardiac Diet provides for energy/protein needs (2,230 Kcal/85 g) during LOS. Burn Absent Trauma Absent GI Symptoms None Food Allergy No Skin Integrity/Comment Assessment WNL. 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 No Is Patient Ambulatory and/or Out of Bed Yes REE-([facility]-ambulatory/OOB) [ [id number] [id number]] Kcal/Kg value to use for calculation 20 Approximate Energy Requirements Using 1958 kcal/Kg Calculation Used for Recommendations Kcal/kg Additional Notes Protein: 0.8-1.2 g/Kg AdjBW; 69-103 g/day. Fluids: 1 ml/Kcal, or as per MD. Nutrition Intervention Change Diet Order: Continue Cardiac Diet. Follow-Up By: 11/08/21 Additional Comments Continue monitoring food tolerance, %PO intake of meals , and BM.
[2021-11-02 10:10] LABS: Platelet Estimate Consistent w Auto; RBC Morphology Normal
--- NOTE | 2021-11-02 15:26 | Progress Note ---
Assessment and Plan Assessment and plan: #Community-acquired pneumonia #Acute hypoxic respiratory failure Pneumonia protocol: Chest x-ray, CBC, CMP, IV antibiotic therapy, supplemental oxygen, pulse oximetry, nebulizer therapy, blood culture. Unremarkable coronavirus PCR. Discontinuing coronavirus infection protocol. - etiology: Infectious/community-acquired pneumonia - baseline oxygen requirements: Room air - supplemental oxygen: 1 L nasal cannula - Continue protocol: continue pulse oximetry, wean oxygen as tolerated, ordered incentive spirometry and educated patient on how to use it and its importance. - continue to monitor #Acute kidney injury (CHAZ) with acute tubular necrosis (ATN)improving Creatinine 3.9--> 3.4 IV fluid resuscitation therapy, BMP, repeat BMP in a.m., monitor urine output every shift. Urine electrolytes. #Hyperkalemiaimproving Potassium 4.7--> 5.5--> 5.1 Continue to monitor with daily BMP #Hyponatremia Hyponatremia 127 (corrected 131 in the setting of hyperglycemia) Continue to monitor with daily BMP #Suspected 2019 novel coronavirus infectionruled out Coronavirus protocol: IV antibiotic therapy, IV steroid therapy, vitamin C therapy, vitamin D therapy, zinc therapy, prophylactic anticoagulation. #Obesity #Weight loss counseling #Exercise counseling - BMI 31.9 - Counseled patient on the importance of weight loss, incorporating exercise, and dietary changes (lean meats, fresh fruits and vegetables, and water intake). Patient expresses understanding. - Time: +15 min #Hypertension Monitor blood pressure every shift, continue medical management. #Metabolic syndrome Weight reduction, low-cholesterol diet, increase physical activity discharge, w eight reduction. #Non-insulin dependent type II diabetes mellitus with hyperglycemia - blood glucose goal 140-180 while inpatient Consistent carbohydrate diet, Accu-Chek, insulin protocol, hypoglycemia protocol. Likely worsened in the setting of IV steroids which have since been discontinued #Mild protein caloric malnutrition Albumin 3.5 Continue dietary supplementation #Tobacco dependence #Tobacco/Smoking cessation counseling - Counseled patient about the importance of smoking cessation and the possible sequelae as a result of continued tobacco consumption. The patient expresses understanding. -Time: +15 mins #Advanced care planning -Disease education conducted, care plan discussed, diagnoses discussed, prognosis discussed, and patient acknowledges understanding with care plan -Time: +30 min Disposition Plan: Continue medical management Total Time Spent with Patient (Minutes): 45 minutes History Interval history: No acute events overnight. Hospitalist Physical - Constitutional Vitals: Temp Pulse Resp BP Pulse Ox 97.4 F L 73 18 142/88 100 11/02/21 11:28 11/02/21 11:28 11/02/21 11:28 11/02/21 11:28 11/02/21 11:28 General appearance: Present: no acute distress, well-nourished, obese - EENT Eyes: Present: PERRL, EOM intact ENT: hearing intact, clear oral mucosa, dentition normal - Neck Neck: Present: supple, normal ROM - Respiratory Respiratory effort: normal Respiratory: bilateral: diminished (2 L nasal cannula) - Cardiovascular Rhythm: regular Heart Sounds: Present: S1 & S2 - Extremities Extremities: no ischemia, pulses intact, pulses symmetrical, No edema, normal temperature, normal color, Full ROM Peripheral Pulses: within normal limits - Abdominal General gastrointestinal: soft, non-tender, non-distended, normal bowel sounds - Integumentary Integumentary: Present: clear, warm, dry - Psychiatric Psychiatric: appropriate mood/affect, intact judgment & insight, memory intact, cooperative - Neurologic Neurologic: CNII-XII intact, moves all extremities - Allied Health Allied health notes reviewed: nursing HEART Score - HEART Score Troponin: Troponin T < 0.010 ng/mL (0.00-0.029) 10/31/21 11:29 Results - Labs CBC & Chem 7: 11/02/21 05:31 11/02/21 05:31 Labs: Laboratory Last Values WBC 15.6 K/mm3 (4.5-11.0) H 11/02/21 05:31 RBC 3.82 M/mm3 (3.65-5.03) 11/02/21 05:31 Hgb 11.7 gm/dl (11.8-15.2) L 11/02/21 05:31 Hct 35.4 % (35.5-45.6) L 11/02/21 05:31 MCV 93 fl (84-94) 11/02/21 05:31 MCH 31 pg (28-32) 11/02/21 05:31 MCHC 33 % (32-34) 11/02/21 05:31 RDW 13.9 % (13.2-15.2) 11/02/21 05:31 Plt Count 482 K/mm3 (140-440) H 11/02/21 05:31 Lymph % (Auto) 6.0 % (13.4-35.0) L 10/31/21 11:29 [place] % (Auto) 7.3 % (0.0-7.3) 10/31/21 11:29 Eos % (Auto) 0.1 % (0.0-4.3) 10/31/21 11:29 Baso % (Auto) 0.2 % (0.0-1.8) 10/31/21 11:29 Lymph # (Auto) 0.8 K/mm3 (1.2-5.4) L 10/31/21 11:29 [place] # (Auto) 1.0 K/mm3 (0.0-0.8) H 10/31/21 11:29 Eos # (Auto) 0.0 K/mm3 (0.0-0.4) 10/31/21 11: Baso # (Auto) 0.0 K/mm3 (0.0-0.1) 10/31/21 11:29 Add Manual Diff Complete 11/02/21 05:31 Total Counted 100 11/01/21 08:37 Seg Neutrophils % Nurse First Aid 11/02/21 05:31 Seg Neuts % (Manual) 99.0 % (40.0-70.0) H 11/01/21 08:37 Band Neutrophils % 0 % 11/01/21 08:37 Lymphocytes % (Manual) 1.0 % (13.4-35.0) L 11/01/21 08:37 Reactive Lymphs % (Man) 0 % 11/01/21 08:37 Monocytes % (Manual) 0 % (0.0-7.3) 11/01/21 08:37 Eosinophils % (Manual) 0 % (0.0-4.3) 11/01/21 08:37 Basophils % (Manual) 0 % (0.0-1.8) 11/01/21 08:37 Metamyelocytes % 0 % 11/01/21 08:37 Myelocytes % 0 % 11/01/21 08:37 Promyelocytes % 0 % 11/01/21 08:37 Blast Cells % 0 % 11/01/21 08:37 Nucleated RBC % Not Reportable 11/02/21 05:31 Seg Neutrophils # 11.8 K/mm3 (1.8-7.7) H 10/31/21 11:29 Seg Neutrophils # Man 14.0 K/mm3 (1.8-7.7) H 11/01/21 08:37 Band Neutrophils # 0.0 K/mm3 11/01/21 08:37 Lymphocytes # (Manual) 0.1 K/mm3 (1.2-5.4) L 11/01/21 08:37 Abs React Lymphs (Man) 0.0 K/mm3 11/01/21 08:37 Monocytes # (Manual) 0.0 K/mm3 (0.0-0.8) 11/01/21 08:37 Eosinophils # (Manual) 0.0 K/mm3 (0.0-0.4) 11/01/21 08:37 Basophils # (Manual) 0.0 K/mm3 (0.0-0.1) 11/01/21 08:37 Metamyelocytes # 0.0 K/mm3 11/01/21 08:37 Myelocytes # 0.0 K/mm3 11/01/21 08:37 Promyelocytes # 0.0 K/mm3 11/01/21 08:37 Blast Cells # 0.0 K/mm3 11/01/21 08:37 WBC Morphology Not Reportable 11/02/21 05:31 Hypersegmented Neuts Not Reportable 11/02/21 05:31 Hyposegmented Neuts Not Reportable 11/02/21 05:31 Hypogranular Neuts Not Reportable 11/02/21 05:31 Smudge Cells Not Reportable 11/02/21 05:31 Toxic Granulation Not Reportable 11/02/21 05:31 Toxic Vacuolation Not Reportable 11/02/21 05:31 Dohle Bodies Not Reportable 11/02/21 05:31 Pelger-Huet Anomaly Not Reportable 11/02/21 05:31 Khush[place] Rods Not Reportable 11/02/21 05:31 Platelet Estimate Consistent w auto 11/02/21 05:31 Clumped Platelets Not Reportable 11/02/21 05:31 Plt Clumps, EDTA Not Reportable 11/02/21 05:31 Large Platelets Not Reportable 11/02/21 05:31 Giant Platelets Not Reportable 11/02/21 05:31 Platelet Satelliting Not Reportable 11/02/21 05:31 Plt Morphology Comment Not Reportable 11/02/21 05:31 RBC Morphology Normal 11/02/21 05:31 Dimorphic RBCs Not Reportable 11/02/21 05:31 Polychromasia Not Reportable 11/02/21 05:31 Hypochromasia Not Reportable 11/02/21 05:31 Poikilocytosis Not Reportable 11/02/21 05:31 Anisocytosis Not Reportable 11/02/21 05:31 Microcytosis Not Reportable 11/02/21 05:31 Macrocytosis Not Reportable 11/02/21 05:31 Spherocytes Not Reportable 11/02/21 05:31 Pappenheimer Bodies Not Reportable 11/02/21 05:31 Sickle Cells Not Reportable 11/02/21 05:31 Target Cells Not Reportable 11/02/21 05:31 Tear Drop Cells Not Reportable 11/02/21 05:31 Ovalocytes Not Reportable 11/02/21 05:31 Helmet Cells Not Reportable 11/02/21 05:31 [place] Bodies Not Reportable 11/02/21 05:31 [place] Rings Not Reportable 11/02/21 05:31 [place] Cells Not Reportable 11/02/21 05:31 Bite Cells Not Reportable 11/02/21 05:31 Crenated Cell Not Reportable 11/02/21 05:31 Elliptocytes Not Reportable 11/02/21 05:31 Acanthocytes (Spur) Not Reportable 11/02/21 05:31 Rouleaux Not Reportable 11/02/21 05:31 Hemoglobin C Crystals Not Reportable 11/02/21 05:31 Schistocytes Not Reportable 11/02/21 05:31 Malaria parasites Not Reportable 11/02/21 05:31 Law Bodies Not Reportable 11/02/21 05:31 Hem Pathologist Commnt No 11/02/21 05:31 PT 14.4 Sec. (12.2-14.9) 10/31/21 11:29 INR 1.01 (0.87-1.13) 10/31/21 11:29 D-Dimer 1264.90 ng/mlDDU (0-234) H 10/31/21 20:05 Sodium 127 mmol/L (137-145) L 11/02/21 05:31 Potassium 5.1 mmol/L (3.6-5.0) H 11/02/21 05:31 Chloride 89.5 mmol/L (98-107) L 11/02/21 05:31 Carbon Dioxide 23 mmol/L (22-30) 11/02/21 05:31 Anion Gap 20 mmol/L 11/02/21 05:31 BUN 65 mg/dL (9-20) H 11/02/21 05:31 Creatinine 3.4 mg/dL (0.8-1.3) H 11/02/21 05:31 Estimated GFR 22 ml/min 11/02/21 05:31 BUN/Creatinine Ratio 19 % 11/02/21 05:31 Glucose 408 mg/dL (75-100) H 11/02/21 05:31 POC Glucose 149 mg/dL (70-105) H 10/31/21 11:15 Calcium 9.6 mg/dL (8.4-10.2) 11/02/21 05:31 Total Bilirubin 0.50 mg/dL (0.1-1.2) 10/31/21 11:29 AST 35 units/L (5-40) 10/31/21 11:29 ALT 44 units/L (7-56) 10/31/21 11:29 Alkaline Phosphatase 270 units/L (35-129) H 10/31/21 11:29 Lactate Dehydrogenase 165 units/L (91-180) 10/31/21 20:05 Total Creatine Kinase 216 units/L (55-170) H 10/31/21 11:29 CK-MB (CK-2) 4.3 ng/mL (0.0-4.0) H 10/31/21 11:29 CK-MB (CK-2) Rel Index 1.9 (0-4) 10/31/21 11:29 Troponin T < 0.010 ng/mL (0.00-0.029) 10/31/21 11:29 C-Reactive Protein 29.10 mg/dL (0.00-1.30) H 10/31/21 20:05 Total Protein 9.4 g/dL (6.3-8.2) H 10/31/21 11:29 Albumin 3.5 g/dL (3.9-5) L 10/31/21 11:29 Albumin/Globulin Ratio 0.6 % 10/31/21 11:29 Procalcitonin 1.88 ng/mL (<0.15) 10/31/21 20:05 Coronavirus (PCR) Negative (Negative) 11/01/21 09:30 [place]/IV: Voiding Method Toilet Active Medications - Current Medications Current Medications: Generic Name Dose Route Start Last Admin Trade Name Freq PRN Reason Stop Dose Admin Acetaminophen 650 mg 10/31/21 19:17 Acetaminophen 325 Mg Tab PO Q4H PRN Pain MILD(1-3)/Fever >100.5/GRISSOM Albuterol 2.5 mg 10/31/21 19:17 Albuterol 2.5 Mg/3 Ml Nebu IH Q4HRT PRN Shortness Of Breath Azithromycin 500 mg 11/01/21 10:00 11/02/21 09:10 Azithromycin 250 Mg Tab PO 11/05/21 10:01 500 mg QDAY JUAN Administration Protocol Carvedilol 12.5 mg 11/02/21 08:00 11/02/21 08:47 Carvedilol 12.5 Mg Tab PO 12.5 mg BID JUAN Administration Cholecalciferol 1,000 unit 11/01/21 10:00 11/02/21 09:10 Cholecalciferol (Vit D3) 1000 Unit (25 Mcg) Tab PO 1,000 unit QDAY JUAN Administration Finasteride 5 mg 10/31/21 22:00 11/02/21 09:09 Finasteride 5 Mg Tab PO 5 mg BID JUAN Administration Heparin Sodium (Porcine) 5,000 unit 10/31/21 22:00 11/02/21 09:10 Heparin 5,000 Unit/1 Ml Vial SUB-Q 5,000 unit Q12HR JUAN Administration Hydromorphone HCl 0.5 mg 10/31/21 19:17 Hydromorphone 0.5 Mg/0.5 Ml Inj IV Q8H PRN Pain , Severe (7-10) Sodium Chloride 1,000 mls @ 42 mls/hr 10/31/21 19:30 11/02/21 05:41 Nacl 0.9% 1000 Ml IV 42 mls/hr DIRECT JUAN Administration Ceftriaxone Sodium 2 gm in 100 mls @ 200 mls/hr 10/31/21 20:00 11/01/21 20:28 Rocephin/Ns 2 Gm/100 Ml IV 200 mls/hr Q24H JUAN Administration Protocol Nifedipine 60 mg 11/02/21 08:00 11/02/21 08:47 Nifedipine Xl 60 Mg Tab PO 60 mg QDAY JUAN Administration Ondansetron HCl 4 mg 10/31/21 19:17 Ondansetron 4 Mg/2 Ml Inj IV Q8H PRN Nausea And Vomiting Oxycodone/Acetaminophen 1 tab 10/31/21 19:17 Oxycodone /Acetaminophen 5-325mg Tab PO Q6H PRN Pain, Moderate (4-6) Sodium Chloride 10 ml 10/31/21 22:00 11/02/21 09:12 Sodium Chloride 0.9% 10 Ml Flush Syringe IV 10 ml BID JUAN Administration Sodium Chloride 10 ml 10/31/21 19:17 Sodium Chloride 0.9% 10 Ml Flush Syringe IV PRN PRN LINE FLUSH Tamsulosin HCl 0.4 mg 10/31/21 22:00 11/02/21 09:09 Tamsulosin 0.4 Mg Cap PO 0.4 mg BID JUAN Administration Tramadol HCl 50 mg 10/31/21 20:00 Tramadol 50 Mg Tab PO Q6H PRN Pain, Moderate (4-6) Zinc Sulfate 220 mg 10/31/21 22:00 11/02/21 09:10 Zinc Sulfate 220 Mg Cap PO 220 mg BID JUAN Administration Nutrition/Malnutrition Assess - Dietary Evaluation Nutrition/Malnutrition Findings: Nutrition Notes Start: 11/01/21 17:19 Freq: Status: Active Protocol: Document 11/01/21 17:19 NINFA (Rec: 11/01/21 17:38 NINFA [id number]) Nutrition Notes Need for Assessment generated from: MD Order Initial or Follow up Assessment Current Diagnosis Acute Kidney Injury,Diabetes, Hypertension,Hyperlipidemia Other Pertinent Diagnosis Pneumonia, COVID-19 pui, Hyponatremia, Hyperkalemia, BPH. Current Diet Cardiac Diet (since D 10/31). Labs/Tests 11/01: Na 127, K 5.5, Cl 87.3, BUN 60, Crea 3.9, Glu 163. Pertinent Medications 11/01: Vit C, Vit D3, ZnSO4, others nutritionally unremarkable. 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 Weight Status Obese Subjective/Other Information RD consult for Dietary Supplementation Assessment. Pt's PO intake of meals has been Good (100%), according to ADL notes. I will not prescribe dietary supplementation since it appears not to be necessary to compensate for poor PO intake of meals at this time. Pt is on Room Air, O2 saturation @ 97%, according to Physical Assessment Histrory notes. Pt has missing teeth, according to Physical Assessment Histrory notes. Percent of energy/protein needs met: Prescribed Cardiac Diet provides for energy/protein needs (2,230 Kcal/85 g) during LOS. Burn Absent Trauma Absent GI Symptoms None Food Allergy No Skin Integrity/Comment Assessment WNL. 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 No Is Patient Ambulatory and/or Out of Bed Yes REE-([place]-ambulatory/OOB) [ [id number] [id number]] Kcal/Kg value to use for calculation 20 Approximate Energy Requirements Using 1958 kcal/Kg Calculation Used for Recommendations Kcal/kg Additional Notes Protein: 0.8-1.2 g/Kg AdjBW; 69-103 g/day. Fluids: 1 ml/Kcal, or as per MD. Nutrition Intervention Change Diet Order: Continue Cardiac Diet. Follow-Up By: 11/08/21 Additional Comments Continue monitoring food tolerance, %PO intake of meals , and BM.
[2021-11-02] MEDS: cefTRIAXone/NS 2 GM/100 ML 2 GM/100 ML BAG IV SCH (21:48)
[2021-11-03 06:32] LABS: Basophils % (Auto) 0.3 % (0.0-1.8); Hematocrit 35.1 % (35.5-45.6); Hemoglobin 11.5 gm/dl (11.8-15.2); Lymphocytes % (Auto) 6.4 % (13.4-35.0); Mean Corpuscular HGB Conc 33 % (32-34); Mean Corpuscular Volume 94 fl (84-94); Monocytes # (Auto) 0.8 K/mm3 (0.0-0.8); Monocytes % (Auto) 5.3 % (0.0-7.3); Platelet Count 490 K/mm3 (140-440); Red Blood Count 3.75 M/mm3 (3.65-5.03); Red Cell Distribution Width 13.9 % (13.2-15.2)
[2021-11-03 06:52] LABS: Calcium 9.6 mg/dL (8.4-10.2)
[2021-11-03] MEDS: carvediloL 12.5 MG TAB PO SCH ×2 (09:25→21:51)
[2021-11-03] MEDS: NIFEdipine XL 60 MG TAB PO SCH (09:25)
[2021-11-03] MEDS: ZINC SULFATE 220 MG CAP PO SCH (09:25)
[2021-11-03] MEDS: CHOLECALCIFEROL (VIT D3) 1000 UNIT (25 mcg) TAB PO SCH (09:26)
[2021-11-03] MEDS: FINASTERIDE 5 MG TAB PO SCH ×2 (09:26→21:52)
[2021-11-03] MEDS: TAMSULOSIN 0.4 MG CAP PO SCH ×2 (09:26→21:52)
[2021-11-03] MEDS: HEPARIN 5,000 UNIT/1 ML VIAL SUB-Q SCH ×2 (09:27→21:52)
[2021-11-03] MEDS ORDERED: levoFLOXacin 750 MG TAB PO SCH (10:00)
--- NOTE | 2021-11-03 17:24 | Progress Note ---
Assessment and Plan Assessment and plan: #Community-acquired pneumonia #Acute hypoxic respiratory failure Pneumonia protocol: Chest x-ray, CBC, CMP, IV antibiotic therapy, supplemental oxygen, pulse oximetry, nebulizer therapy, blood culture. Transitioned to Levaquin 750 mg to complete a 7-day course (completes on 11/06/2021). Unremarkable coronavirus PCR. Discontinuing coronavirus infection protocol. - etiology: Infectious/community-acquired pneumonia - baseline oxygen requirements: Room air - supplemental oxygen: 2 L nasal cannula - Continue protocol: continue pulse oximetry, wean oxygen as tolerated, ordered incentive spirometry and educated patient on how to use it and its importance. - continue to monitor #Acute kidney injury (CHAZ) with acute tubular necrosis (ATN)improving Creatinine 3.9--> 3.4--> 2.6 Discontinued IV fluid resuscitation. Renally dose meds and avoid nephrotoxic drugs. #Hyperkalemiaresolved Potassium 4.7--> 5.5--> 5.1 Continue to monitor with daily BMP #Hyponatremiaimproved Hyponatremia 127--> 132 Continue to monitor with daily BMP #Suspected 2019 novel coronavirus infectionruled out Coronavirus protocol: IV antibiotic therapy, IV steroid therapy, vitamin C therapy, vitamin D therapy, zinc therapy, prophylactic anticoagulation. #Obesity #Weight loss counseling #Exercise counseling - BMI 31.9 - Counseled patient on the importance of weight loss, incorporating exercise, and dietary changes (lean meats, fresh fruits and vegetables, and water intake). Patient expresses understanding. - Time: +15 min #Hypertension Monitor blood pressure every shift, continue medical management. #Metabolic syndrome Weight reduction, low-cholesterol diet, increase physical activity discharge, weight reduction. #Non-insulin dependent type II diabetes mellitus with hyperglycemia - blood glucose goal 140-180 while inpatient Consistent carbohydrate diet, Accu-Chek, insulin protocol, hypoglycemia protocol. Likely worsened in the setting of IV steroids which have since been discontinued #Mild protein caloric malnutrition Albumin 3.5 Continue dietary supplementation #Tobacco dependence #Tobacco/Smoking cessation counseling - Counseled patient about the importance of smoking cessation and the possible sequelae as a result of continued tobacco consumption. The patient expresses understanding. -Time: +15 mins #Advanced care planning -Disease education conducted, care plan discussed, diagnoses discussed, prognosis discussed, and patient acknowledges understanding with care plan -Time: +30 min #Discharge planning - Patient is pending resolution of acute hypoxic respiratory failure. - Case management has been made aware. - Discharge is tentatively 24-48 hours Disposition Plan: Continue medical management Total Time Spent with Patient (Minutes): 45 minutes History Interval history: No acute events overnight. Hospitalist Physical - Constitutional Vitals: Temp Pulse Resp BP Pulse Ox 97.6 F 87 18 136/84 99 11/02/21 21:32 11/02/21 21:44 11/02/21 21:32 11/02/21 21:44 11/03/21 11:00 General appearance: Present: no acute distress, well-nourished, obese - EENT Eyes: Present: PERRL, EOM intact ENT: hearing intact, clear oral mucosa, dentition normal - Neck Neck: Present: supple, normal ROM - Respiratory Respiratory effort: normal Respiratory: bilateral: diminished (On 2 L nasal cannula) - Cardiovascular Rhythm: regular Heart Sounds: Present: S1 & S2 - Extremities Extremities: no ischemia, pulses intact, pulses symmetrical, No edema, normal temperature, normal color, Full ROM Peripheral Pulses: within normal limits - Abdominal General gastrointestinal: soft, non-tender, non-distended, normal bowel sounds - Integumentary Integumentary: Present: clear, warm, dry - Psychiatric Psychiatric: appropriate mood/affect, intact judgment & insight, memory intact, cooperative - Neurologic Neurologic: CNII-XII intact, moves all extremities - Allied Health Allied health notes reviewed: nursing HEART Score - HEART Score Troponin: Troponin T < 0.010 ng/mL (0.00-0.029) 10/31/21 11:29 Results - Labs CBC & Chem 7: 11/03/21 05:49 11/03/21 05:49 Labs: Laboratory Last Values WBC 15.7 K/mm3 (4.5-11.0) H 11/03/21 05:49 RBC 3.75 M/mm3 (3.65-5.03) 11/03/21 05:49 Hgb 11.5 gm/dl (11.8-15.2) L 11/03/21 05:49 Hct 35.1 % (35.5-45.6) L 11/03/21 05:49 MCV 94 fl (84-94) 11/03/21 05:49 MCH 31 pg (28-32) 11/03/21 05:49 MCHC 33 % (32-34) 11/03/21 05:49 RDW 13.9 % (13.2-15.2) 11/03/21 05:49 Plt Count 490 K/mm3 (140-440) H 11/03/21 05:49 Lymph % (Auto) 6.4 % (13.4-35.0) L 11/03/21 05:49 [place] % (Auto) 5.3 % (0.0-7.3) 11/03/21 05:49 Eos % (Auto) 0.0 % (0.0-4.3) 11/03/21 05:49 Baso % (Auto) 0.3 % (0.0-1.8) 11/03/21 05:49 Lymph # (Auto) 1.0 K/mm3 (1.2-5.4) L 11/03/21 05:49 [place] # (Auto) 0.8 K/mm3 (0.0-0.8) 11/03/21 05:49 Eos # (Auto) 0.0 K/mm3 (0.0-0.4) 11/03/21 05:49 Baso # (Auto) 0.0 K/mm3 (0.0-0.1) 11/03/21 05:49 Add Manual Diff Complete 11/02/21 05:31 Total Counted 100 11/01/21 08:37 Seg Neutrophils % 88.0 % (40.0-70.0) H 11/03/21 05:49 Seg Neuts % (Manual) 99.0 % (40.0-70.0) H 11/01/21 08:37 Band Neutrophils % 0 % 11/01/21 08:37 Lymphocytes % (Manual) 1.0 % (13.4-35.0) L 11/01/21 08:37 Reactive Lymphs % (Man) 0 % 11/01/21 08:37 Monocytes % (Manual) 0 % (0.0-7.3) 11/01/21 08:37 Eosinophils % (Manual) 0 % (0.0-4.3) 11/01/21 08:37 Basophils % (Manual) 0 % (0.0-1.8) 11/01/21 08:37 Metamyelocytes % 0 % 11/01/21 08:37 Myelocytes % 0 % 11/01/21 08:37 Promyelocytes % 0 % 11/01/21 08:37 Blast Cells % 0 % 11/01/21 08:37 Nucleated RBC % Not Reportable 11/02/21 05:31 Seg Neutrophils # 13.8 K/mm3 (1.8-7.7) H 11/03/21 05:49 Seg Neutrophils # Man 14.0 K/mm3 (1.8-7.7) H 11/01/21 08:37 Band Neutrophils # 0.0 K/mm3 11/01/21 08:37 Lymphocytes # (Manual) 0.1 K/mm3 (1.2-5.4) L 11/01/21 08:37 Abs React Lymphs (Man) 0.0 K/mm3 11/01/21 08:37 Monocytes # (Manual) 0.0 K/mm3 (0.0-0.8) 11/01/21 08:37 Eosinophils # (Manual) 0.0 K/mm3 (0.0-0.4) 11/01/21 08:37 Basophils # (Manual) 0.0 K/mm3 (0.0-0.1) 11/01/21 08:37 Metamyelocytes # 0.0 K/mm3 11/01/21 08:37 Myelocytes # 0.0 K/mm3 11/01/21 08:37 Promyelocytes # 0.0 K/mm3 11/01/21 08:37 Blast Cells # 0.0 K/mm3 11/01/21 08:37 WBC Morphology Not Reportable 11/02/21 05:31 Hypersegmented Neuts Not Reportable 11/02/21 05:31 Hyposegmented Neuts Not Reportable 11/02/21 05:31 Hypogranular Neuts Not Reportable 11/02/21 05:31 Smudge Cells Not Reportable 11/02/21 05:31 Toxic Granulation Not Reportable 11/02/21 05:31 Toxic Vacuolation Not Reportable 11/02/21 05:31 Dohle Bodies Not Reportable 11/02/21 05:31 Pelger-Huet Anomaly Not Reportable 11/02/21 05:31 Khushbu Rods Not Reportable 11/02/21 05:31 Platelet Estimate Consistent w auto 11/02/21 05:31 Clumped Platelets Not Reportable 11/02/21 05:31 Plt Clumps, EDTA Not Reportable 11/02/21 05:31 Large Platelets Not Reportable 11/02/21 05:31 Giant Platelets Not Reportable 11/02/21 05:31 Platelet Satelliting Not Reportable 11/02/21 05:31 Plt Morphology Comment Not Reportable 11/02/21 05:31 RBC Morphology Normal 11/02/21 05:31 Dimorphic RBCs Not Reportable 11/02/21 05:31 Polychromasia Not Reportable 11/02/21 05:31 Hypochromasia Not Reportable 11/02/21 05:31 Poikilocytosis Not Reportable 11/02/21 05:31 Anisocytosis Not Reportable 11/02/21 05:31 Microcytosis Not Reportable 11/02/21 05:31 Macrocytosis Not Reportable 11/02/21 05:31 Spherocytes Not Reportable 11/02/21 05:31 Pappenheimer Bodies Not Reportable 11/02/21 05:31 Sickle Cells Not Reportable 11/02/21 05:31 Target Cells Not Reportable 11/02/21 05:31 Tear Drop Cells Not Reportable 11/02/21 05:31 Ovalocytes Not Reportable 11/02/21 05:31 Helmet Cells Not Reportable 11/02/21 05:31 [place] Bodies Not Reportable 11/02/21 05:31 [place] Rings Not Reportable 11/02/21 05:31 [place] Cells Not Reportable 11/02/21 05:31 Bite Cells Not Reportable 11/02/21 05:31 Crenated Cell Not Reportable 11/02/21 05:31 Elliptocytes Not Reportable 11/02/21 05:31 Acanthocytes (Spur) Not Reportable 11/02/21 05:31 Rouleaux Not Reportable 11/02/21 05:31 Hemoglobin C Crystals Not Reportable 11/02/21 05:31 Schistocytes Not Reportable 11/02/21 05:31 Malaria parasites Not Reportable 11/02/21 05:31 Law Bodies Not Reportable 11/02/21 05:31 Hem Pathologist Commnt No 11/02/21 05:31 PT 14.4 Sec. (12.2-14.9) 10/31/21 11:29 INR 1.01 (0.87-1.13) 10/31/21 11:29 D-Dimer 1264.90 ng/mlDDU (0-234) H 10/31/21 20:05 Sodium 132 mmol/L (137-145) L 11/03/21 05:49 Potassium 4.8 mmol/L (3.6-5.0) 11/03/21 05:49 Chloride 95.7 mmol/L (98-107) L 11/03/21 05:49 Carbon Dioxide 23 mmol/L (22-30) 11/03/21 05:49 Anion Gap 18 mmol/L 11/03/21 05:49 BUN 59 mg/dL (9-20) H 11/03/21 05:49 Creatinine 2.6 mg/dL (0.8-1.3) H 11/03/21 05:49 Estimated GFR 30 ml/min 11/03/21 05:49 BUN/Creatinine Ratio 23 % 11/03/21 05:49 Glucose 321 mg/dL (75-100) H 11/03/21 05:49 POC Glucose 149 mg/dL (70-105) H 10/31/21 11:15 Calcium 9.6 mg/dL (8.4-10.2) 11/03/21 05:49 Total Bilirubin 0.50 mg/dL (0.1-1.2) 10/31/21 11:29 AST 35 units/L (5-40) 10/31/21 11:29 ALT 44 units/L (7-56) 10/31/21 11:29 Alkaline Phosphatase 270 units/L (35-129) H 10/31/21 11:29 Lactate Dehydrogenase 165 units/L (91-180) 10/31/21 20:05 Total Creatine Kinase 216 units/L (55-170) H 10/31/21 11:29 CK-MB (CK-2) 4.3 ng/mL (0.0-4.0) H 10/31/21 11:29 CK-MB (CK-2) Rel Index 1.9 (0-4) 10/31/21 11:29 Troponin T < 0.010 ng/mL (0.00-0.029) 10/31/21 11:29 C-Reactive Protein 29.10 mg/dL (0.00-1.30) H 10/31/21 20:05 Total Protein 9.4 g/dL (6.3-8.2) H 10/31/21 11:29 Albumin 3.5 g/dL (3.9-5) L 10/31/21 11:29 Albumin/Globulin Ratio 0.6 % 10/31/21 11:29 Procalcitonin 1.88 ng/mL (<0.15) 10/31/21 20:05 Coronavirus (PCR) Negative (Negative) 11/01/21 09:30 [place]/IV: Voiding Method Toilet Active Medications - Current Medications Current Medications: Generic Name Dose Route Start Last Admin Trade Name Freq PRN Reason Stop Dose Admin Acetaminophen 650 mg 10/31/21 19:17 Acetaminophen 325 Mg Tab PO Q4H PRN Pain MILD(1-3)/Fever >100.5/GRISSOM Albuterol 2.5 mg 10/31/21 19:17 Albuterol 2.5 Mg/3 Ml Nebu IH Q4HRT PRN Shortness Of Breath Carvedilol 12.5 mg 11/02/21 08:00 11/03/21 09:25 Carvedilol 12.5 Mg Tab PO 12.5 mg BID JUAN Administration Finasteride 5 mg 10/31/21 22:00 11/03/21 09:26 Finasteride 5 Mg Tab PO 5 mg BID JUAN Administration Heparin Sodium (Porcine) 5,000 unit 10/31/21 22:00 11/03/21 09:27 Heparin 5,000 Unit/1 Ml Vial SUB-Q 5,000 unit Q12HR JUAN Administration Hydromorphone HCl 0.5 mg 10/31/21 19:17 Hydromorphone 0.5 Mg/0.5 Ml Inj IV Q8H PRN Pain , Severe (7-10) Levofloxacin 750 mg 11/05/21 10:00 Levofloxacin 750 Mg Tab PO 11/07/21 10:01 Q48HR [facility] Protocol Nifedipine 60 mg 11/02/21 08:00 11/03/21 09:25 Nifedipine Xl 60 Mg Tab PO 60 mg QDAY JUAN Administration Ondansetron HCl 4 mg 10/31/21 19:17 Ondansetron 4 Mg/2 Ml Inj IV Q8H PRN Nausea And Vomiting Oxycodone/Acetaminophen 1 tab 10/31/21 19:17 Oxycodone /Acetaminophen 5-325mg Tab PO Q6H PRN Pain, Moderate (4-6) Sodium Chloride 10 ml 10/31/21 22:00 11/03/21 09:36 Sodium Chloride 0.9% 10 Ml Flush Syringe IV 10 ml BID JUAN Administration Sodium Chloride 10 ml 10/31/21 19:17 Sodium Chloride 0.9% 10 Ml Flush Syringe IV PRN PRN LINE FLUSH Tamsulosin HCl 0.4 mg 10/31/21 22:00 11/03/21 09:26 Tamsulosin 0.4 Mg Cap PO 0.4 mg BID JUAN Administration Tramadol HCl 50 mg 10/31/21 20:00 Tramadol 50 Mg Tab PO Q6H PRN Pain, Moderate (4-6) Nutrition/Malnutrition Assess - Dietary Evaluation Nutrition/Malnutrition Findings: Nutrition Notes Start: 11/01/21 17:19 Freq: Status: Active Protocol: Document 11/01/21 17:19 NINFA (Rec: 11/01/21 17:38 NINFA [id number]) Nutrition Notes Need for Assessment generated from: MD Order Initial or Follow up Assessment Current Diagnosis Acute Kidney Injury,Diabetes, Hypertension,Hyperlipidemia Other Pertinent Diagnosis Pneumonia, COVID-19 pui, Hyponatremia, Hyperkalemia, BPH. Current Diet Cardiac Diet (since D 10/31). Labs/Tests 11/01: Na 127, K 5.5, Cl 87.3, BUN 60, Crea 3.9, Glu 163. Pertinent Medications 11/01: Vit C, Vit D3, ZnSO4, others nutritionally unremarkable. Height 5 ft 9 in Weight 97.9 kg [place] Body Weight (kg) 72.72 BMI 31.8 Intake Prior to Admission Good Weight change and time frame Pt denies having loss body weight [employer]. Weight Status Obese Subjective/Other Information RD consult for Dietary Supplementation Assessment. Pt's PO intake of meals has been Good (100%), according to ADL notes. I will not prescribe dietary supplementation since it appears not to be necessary to compensate for poor PO intake of meals at this time. Pt is on Room Air, O2 saturation @ 97%, according to Physical Assessment Histrory notes. Pt has missing teeth, according to Physical Assessment Histrory notes. Percent of energy/protein needs met: Prescribed Cardiac Diet provides for energy/protein needs (2,230 Kcal/85 g) during LOS. Burn Absent Trauma Absent GI Symptoms None Food Allergy No Skin Integrity/Comment Assessment WNL. Current % PO Good (75-100%) Minimum of two criteria No Fluid Accumulation N/A Reduced Pot Pusher Strength N/A (non-severe) Protein-Calorie Malnutrition N\A #1 Nutrition Diagnosis No nutrition diagnosis at this time Is patient on ventilator? No Is Patient Ambulatory and/or Out of Bed Yes REE-([facility]-ambulatory/OOB) [ 2287.194 [id number]] Kcal/Kg value to use for calculation 20 Approximate Energy Requirements Using 1957 kcal/Kg Calculation Used for Recommendations Kcal/kg Additional Notes Protein: 0.8-1.2 g/Kg AdjBW; 69-103 g/day. Fluids: 1 ml/Kcal, or as per MD. Nutrition Intervention Change Diet Order: Continue Cardiac Diet. Follow-Up By: 11/08/21 Additional Comments Continue monitoring food tolerance, %PO intake of meals , and BM.
[2021-11-04] MEDS: carvediloL 12.5 MG TAB PO SCH (09:20)
[2021-11-04] MEDS: TAMSULOSIN 0.4 MG CAP PO SCH (09:20)
[2021-11-04] MEDS: NIFEdipine XL 60 MG TAB PO SCH (09:20)
[2021-11-04] MEDS: FINASTERIDE 5 MG TAB PO SCH (09:20)
[2021-11-04 09:21] VITALS: BP 129/77
[2021-11-04] MEDS: HEPARIN 5,000 UNIT/1 ML VIAL SUB-Q SCH (09:21)
[2021-11-04 09:23] LABS: Hematocrit 38.5 % (35.5-45.6); Hemoglobin 12.6 gm/dl (11.8-15.2); Mean Corpuscular HGB Conc 33 % (32-34); Mean Corpuscular Volume 93 fl (84-94); Platelet Count 563 K/mm3 (140-440); Red Blood Count 4.14 M/mm3 (3.65-5.03); Red Cell Distribution Width 13.9 % (13.2-15.2)
[2021-11-04 09:26] LABS: Calcium 10.2 mg/dL (8.4-10.2)
--- NOTE | 2021-11-04 12:18 | Discharge Summary ---
Providers - Providers Date of Admission: 10/31/21 19:18 Date of discharge: 11/04/21 Attending physician: KEYANNA WAYNE MD Primary care physician: PANEL BUILDER Hospitalization Reason for admission: Community-acquired pneumonia, acute hypoxic respiratory failure, CHAZ Condition: Stable Pertinent studies: Reviewed. Procedures: None. Hospital course: 66 YO male with Obesity, BPH, DM, Metabolic Syndrome,BPH, HLD, Nicotine Dependence presents to ED for evaluation. Patient reports "I get short of breath, then I got dizzy, then I passed out". Patient states that he has been "not feeling well over the past 2 days. Patient states that while ambulating today he experienced a sudden onset of dizziness, weakness and shortness of breath and subsequently passed out. Patient transported to [facility] via private vehicle for further care and evaluation of the aforementioned symptoms. The patient was seen and evaluated in the emergency department. All lab and imaging studies reviewed. Patient with chest x-ray and was found to have bilateral pneumonia, as well as acute kidney injury. Patient admitted to medical floor and initiated on pneumonia protocol as well as coronavirus protocol. Patient denies fever, chills, chest pain, palpitation, productive cough, skin rash, rece nt contact, unilateral leg swelling, calf pain, prolonged immobility, prolonged travel, individual/family history of DVT/PE/bleeding/blood clotting disorders. The patient was found to be unremarkable for coronavirus; therefore, steroids were discontinued. The patient continued with IV azithromycin and Rocephin. The patient was eventually transitioned to oral Levaquin to be completed in the outpatient setting for total of 7 days of antibiotics. The patient has also successfully been weaned off of supplemental oxygen to room air. On presentation the patient had an CHAZ with a creatinine of 3.9 that has been steadily improving. The patient has been counseled about increasing p.o. intake. The patient expressed understanding. The patient is medically clear for discharge, and he will follow-up with his primary care provider upon discharge. Disposition: 01 HOME / SELF CARE / HOMELESS Final Discharge Diagnosis (Prints w/discharge instructions): Community-acquired pneumonia, acute hypoxic respiratory failure, CHAZ with ATN, hyperkalemia, hyponatremia, obesity, hypertension, metabolic syndrome, noninsulin-dependent type 2 diabetes mellitus with hyperglycemia, mild protein caloric malnutrition, tobacco dependence. Time spent for discharge: 45 min Core Measure Documentation - Palliative Care Palliative Care/ Comfort Measures: Not Applicable - Core Measures Any of the following diagnoses?: none Exam - Constitutional Vitals: Temp Pulse Resp BP Pulse Ox 98 F 98 H 20 129/77 98 11/04/21 09:26 11/04/21 09:26 11/04/21 09:26 11/04/21 09:11/04/21 09:26 General appearance: Present: no acute distress, well-nourished, obese - EENT Eyes: Present: PERRL, EOM intact ENT: hearing intact, clear oral mucosa, dentition normal - Neck Neck: Present: supple, normal ROM - Respiratory Respiratory effort: normal Respiratory: bilateral: diminished - Cardiovascular Rhythm: regular Heart Sounds: Present: S1 & S2 - Extremities Extremities: no ischemia, pulses intact, pulses symmetrical, No edema, normal temperature, normal color, Full ROM Peripheral Pulses: within normal limits - Abdominal General gastrointestinal: Present: soft, non-tender, non-distended, normal bowel sounds Male genitourinary: Present: deferred - Rectal Rectal Exam: deferred - Integumentary Integumentary: Present: clear, warm, dry - Musculoskeletal Musculoskeletal: strength equal bilaterally - Psychiatric Psychiatric: appropriate mood/affect, intact judgment & insight, memory intact, cooperative - Neurologic Neurologic: CNII-XII intact, moves all extremities - Allied Health Allied health notes reviewed: nursing Plan Activity: advance as tolerated Diet: low salt, diabetic Additional Instructions: 66 YO male with Obesity, BPH, DM, Metabolic Syndrome,BPH, HLD, Nicotine Dependence presents to ED for evaluation. Patient reports "I get short of breath, then I got dizzy, then I passed out". Patient states that he has been "not feeling well over the past 2 days. Patient states that while ambulating today he experienced a sudden onset of dizziness, weakness and shortness of breath and subsequently passed out. Patient transported to [facility] via private vehicle for further care and evaluation of the aforementioned symptoms. The patient was seen and evaluated in the emergency department. All lab and imaging studies reviewed. Patient with chest x-ray and was found to have bilateral pneumonia, as well as acute kidney injury. Patient admitted to medical floor and initiated on pneumonia protocol as well as coronavirus protocol. Patient denies fever, chills, chest pain, palpitation, productive cough, skin rash, recent contact, unilateral leg swelling, calf pain, prolonged immobility, prolonged travel, individual/family history of DVT/PE/bleeding/blood clotting disorders. The patient was found to be unremarkable for coronavirus; therefore, steroids were discontinued. The patient continued with IV azithromycin and Rocephin. The patient was eventually transitioned to oral Levaquin to be completed in the outpatient setting for total of 7 days of antibiotics. The patient has also successfully been weaned off of supplemental oxygen to room air. On presentation the patient had an CHAZ with a creatinine of 3.9 that has been steadily improving. The patient has been counseled about increasing p.o. intake. The patient expressed understanding. The patient is medically clear for discharge, and he will follow-up with his primary care provider upon discharge. Care Plan Goals: Patient is medically clear for discharge. Assessment: 66 YO male with Obesity, BPH, DM, Metabolic Syndrome,BPH, HLD, Nicotine Dependence presents to ED for evaluation. Patient reports "I get short of breath, then I got dizzy, then I passed out". Patient states that he has been "not feeling well over the past 2 days. Patient states that while ambulating today he experienced a sudden onset of dizziness, weakness and shortness of breath and subsequently passed out. Patient transported to [facility] via private vehicle for further care and evaluation of the aforementioned symptoms. The patient was seen and evaluated in the emergency department. All lab and imaging studies reviewed. Patient with chest x-ray and was found to have bilateral pneumonia, as well as acute kidney injury. Patient admitted to medical floor and initiated on pneumonia protocol as well as coronavirus protocol. Patient denies fever, chills, chest pain, palpitation, productive cough, skin rash, recent contact, unilateral leg swelling, calf pain, prolonged immobility, prolonged travel, individual/family history of DVT/PE/bleeding/blood clotting disorders. The patient was found to be unremarkable for coronavirus; therefore, steroids were discontinued. The patient continued with IV azithromycin and Rocephin. The patient was eventually transitioned to oral Levaquin to be completed in the outpatient setting for total of 7 days of antibiotics. The patient has also successfully been weaned off of supplemental oxygen to room air. On presentation the patient had an CHAZ with a creatinine of 3.9 that has been steadily improving. The patient has been counseled about increasing p.o. intake. The patient expressed understanding. The patient is medically clear for discharge, and he will follow-up with his primary care provider upon discharge. Follow up with: PRIMARY MD HINA [Primary Care Provider] - 7 Days DREA HILLS MD [Staff Physician] - 7 Days Prescriptions: carvediloL [Coreg] 12.5 mg PO BID #60 tablet levoFLOXacin [Levaquin TAB] 750 mg PO QDAY #4 tablet NIFEdipine XL [Procardia Xl] 60 mg PO QDAY #30 tablet Finasteride [Proscar] 5 mg PO BID #60 tablet
[2021-11-05] MEDS ORDERED: levoFLOXacin 750 MG TAB PO SCH (10:00)
== END 2021-11-04 15:20 | disposition home or self-care (01) | DRG 682 ==
LOC: ED 10:58 → 3A 19:18
PROVIDERS: ADMIT Internal Medicine; ATTEND Student in an Organized Health Care Education/Training Program
DX: N17.0 Acute kidney failure with tubular necrosis (principal); J18.9 Pneumonia, unspecified organism; E44.1 Mild protein-calorie malnutrition; E87.1 Hypo-osmolality and hyponatremia; Z20.822 Contact with and (suspected) exposure to COVID-19; N18.9 Chronic kidney disease, unspecified; I12.9 Hypertensive chronic kidney disease with stage 1 through stage 4 chronic kidney disease, or unspecified chronic kidney disease; E11.22 Type 2 diabetes mellitus with diabetic chronic kidney disease; E78.00 Pure hypercholesterolemia, unspecified; F17.200 Nicotine dependence, unspecified, uncomplicated; N40.0 Benign prostatic hyperplasia without lower urinary tract symptoms; E78.5 Hyperlipidemia, unspecified; E88.81 Metabolic syndrome and other insulin resistance; E66.9 Obesity, unspecified; Z68.31 Body mass index [BMI] 31.0-31.9, adult; Z71.3 Dietary counseling and surveillance; Z71.6 Tobacco abuse counseling; E87.5 Hyperkalemia; E11.65 Type 2 diabetes mellitus with hyperglycemia; Z82.49 Family history of ischemic heart disease and other diseases of the circulatory system
CPT/HCPCS: 36415; 70450; 71045; 71046; 80048; 80053; 82550; 82553; 82962; 83615; 84145; 84484; 85007; 85025; 85027; 85379; 85610; 86140; 93005; 94760; G0378; J3490; Q9967; J0696; J1644; J1815; J2920; J7030; U0003